=== PATIENT | male | born 1945 | race Caucasian/White ===

== ENCOUNTER → 2020-11-01 14:24 | Outpatient (BNVA) | payer OTHER, MEDICARE, SELFPAY | PROVIDERS: Family Provider Emergency Medicine Emergency Medical Services; PCP Emergency Medicine Emergency Medical Services; Visit Provider Internal Medicine Cardiovascular Disease | DX: E78.2 Mixed hyperlipidemia (principal) | CPT/HCPCS: 80061; 80076 ==

== ENCOUNTER → 2021-05-06 12:05 | Outpatient (BNVA) | payer OTHER, MEDICARE, SELFPAY | PROVIDERS: Family Provider Emergency Medicine Emergency Medical Services; PCP Emergency Medicine Emergency Medical Services; Visit Provider Internal Medicine Cardiovascular Disease | DX: E78.5 Hyperlipidemia, unspecified (principal); E78.2 Mixed hyperlipidemia | CPT/HCPCS: 80061 ==

== ENCOUNTER → 2022-04-17 11:30 | Outpatient (BNVA) | payer OTHER, SELFPAY | PROVIDERS: Family Provider Emergency Medicine Emergency Medical Services; PCP Emergency Medicine Emergency Medical Services; Visit Provider Internal Medicine Cardiovascular Disease | DX: I25.10 Atherosclerotic heart disease of native coronary artery without angina pectoris (principal); I10 Essential (primary) hypertension; E78.2 Mixed hyperlipidemia | CPT/HCPCS: 99214 ==

== ENCOUNTER → 2023-01-15 11:58 | Outpatient (BNVA) | payer OTHER, SELFPAY | PROVIDERS: Family Provider Emergency Medicine Emergency Medical Services; PCP Emergency Medicine Emergency Medical Services; Visit Provider Internal Medicine Cardiovascular Disease | DX: R06.02 Shortness of breath (principal); R25.2 Cramp and spasm; I25.10 Atherosclerotic heart disease of native coronary artery without angina pectoris; E78.2 Mixed hyperlipidemia; I10 Essential (primary) hypertension | CPT/HCPCS: 36415; 80048; 83735; 99214 ==

== ENCOUNTER → 2023-07-30 11:29 | Outpatient (BNVA) | payer OTHER, SELFPAY | PROVIDERS: Family Provider Emergency Medicine Emergency Medical Services; PCP Emergency Medicine Emergency Medical Services; Visit Provider Internal Medicine Cardiovascular Disease | DX: I25.10 Atherosclerotic heart disease of native coronary artery without angina pectoris (principal); E78.2 Mixed hyperlipidemia; I10 Essential (primary) hypertension; R25.2 Cramp and spasm | CPT/HCPCS: 99214 ==

== ENCOUNTER → 2024-02-16 10:58 | Outpatient (BNVA) | payer OTHER, SELFPAY | PROVIDERS: Family Provider Emergency Medicine Emergency Medical Services; PCP Emergency Medicine Emergency Medical Services; Visit Provider Internal Medicine Cardiovascular Disease | DX: R07.9 Chest pain, unspecified (principal); I25.10 Atherosclerotic heart disease of native coronary artery without angina pectoris; I10 Essential (primary) hypertension; E78.2 Mixed hyperlipidemia; M16.0 Bilateral primary osteoarthritis of hip; I44.0 Atrioventricular block, first degree | CPT/HCPCS: 93005; 99214 ==

== ENCOUNTER → 2024-08-18 10:00 | Outpatient (BNVA) | payer OTHER, SELFPAY | PROVIDERS: Family Provider Emergency Medicine Emergency Medical Services; PCP Emergency Medicine Emergency Medical Services; Visit Provider Nurse Practitioner Family | DX: I25.10 Atherosclerotic heart disease of native coronary artery without angina pectoris (principal); I10 Essential (primary) hypertension | CPT/HCPCS: 99214 ==

== ENCOUNTER → 2024-09-12 09:28 | Outpatient (BNVA) | payer OTHER, SELFPAY | PROVIDERS: Family Provider Emergency Medicine Emergency Medical Services; PCP Emergency Medicine Emergency Medical Services; Visit Provider Nurse Practitioner Family | DX: L57.0 Actinic keratosis (principal); L57.8 Other skin changes due to chronic exposure to nonionizing radiation; L82.1 Other seborrheic keratosis; D23.21 Other benign neoplasm of skin of right ear and external auricular canal; B35.1 Tinea unguium; L81.4 Other melanin hyperpigmentation | CPT/HCPCS: 17000; 99203 ==

== ENCOUNTER → 2025-03-02 11:22 | Outpatient (BNVA) | payer OTHER, SELFPAY | PROVIDERS: Family Provider Emergency Medicine Emergency Medical Services; PCP Emergency Medicine Emergency Medical Services; Visit Provider Internal Medicine Cardiovascular Disease | DX: I25.10 Atherosclerotic heart disease of native coronary artery without angina pectoris (principal); I10 Essential (primary) hypertension; E78.2 Mixed hyperlipidemia; M16.0 Bilateral primary osteoarthritis of hip | CPT/HCPCS: 99214 ==

== ENCOUNTER → 2025-03-13 09:50 | Outpatient (BNVA) | payer OTHER, SELFPAY | PROVIDERS: Family Provider Emergency Medicine Emergency Medical Services; PCP Emergency Medicine Emergency Medical Services; Visit Provider Nurse Practitioner Family | DX: L81.4 Other melanin hyperpigmentation (principal); L57.8 Other skin changes due to chronic exposure to nonionizing radiation; X32.XXXA Exposure to sunlight, initial encounter; L82.1 Other seborrheic keratosis; L57.0 Actinic keratosis | CPT/HCPCS: 17000; 99213 ==

== ENCOUNTER 2025-06-14 09:55 | Observation (INO) | payer OTHER, MEDICARE, SELFPAY ==
--- OUTSIDE RECORDS SUMMARY | 2024-07-21 05:00 | XMS_ITS | Encounter Summary ---
Author Name [facility] [place] [facility] [place] [facility] [facility] [place] Address [address] [place] [address] Care Team Providers Care Crm Technical Lead Name Role Phone ZEINAB ROBERTSON Primary Care Provider Unavail able Insurance Providers: All historical and current Section Date Range: From patient's date of to the date document was created. This section includes the names of all active insurance providers for the patient. Insurance Provider Type of Coverage Plan Name Start of Policy Coverage End of Policy Coverage Group Number Member ID Insurance Provider's Telephone Number Policy Mccrary's Name Patient's Relationship to Policy Mccrary [place] PREFERRED PROVIDER ORGANIZAT ION (PPO) UAW RETIR EE MEDIC AL Nov 16, 2009 [id number] [phone] HAMIDAREX LINDABOBBY PATIENT [place] [facility] (WNR) MEDICARE ADVANTAGE MCR (WNR) Nov 16, 2018 [id number] [phone] HAMIDAREX LEBOBBY PATIENT [place]THE[place] [facility] (WNR) MEDICARE ADVANTAGE MCR (WNR) Nov 16, 2018 [id number] [phone] HAMIDAREX LEBOBBY PATIENT [place] [facility] (WNR) MEDICARE ADVANTAGE MCR (WNR) Nov 16, 2013 [id number] [phone] HAMIDAREX LEBOBBY PATIENT [employer] ([employer]) PRESCRIPT ION UAW RETIR EE(WN R) Nov 16, 2009 [id number] [phone] BOBBY LORD PATIENT MEDICARE (WNR) MEDICARE (M) PART A Nov 16, 2013 PART A [id number] BOBBY LORD PATIENT MEDICARE (WNR) MEDICARE (M) PART A Nov 16, 2013 PART A [id number] BOBBY LORD PATIENT MEDICARE (WNR) MEDICARE (M) PART B Nov 16, 2013 PART B [id number] BOBBY LORD PATIENT MEDICARE (WNR) MEDICARE (M) PART B Nov 16, 2013 PART B [id number] BOBBY LORD PATIENT Selected Encounter This section includes the information on record at [place] for the Encounter. Date/Time Encounter Type Encounter Description Reason Provider Source Jul 21, 2024 10:00 AM IMMUNIZATION ADMIN PRIMARY CARE/MEDICINE ICD-10-CM Z00.00 Encntr for general adult medical exam w/o abnormal findings JANINE ROBERTSON Yulia Encounter Template Text not used by [facility] Assessments - Encounter Diagnoses This section includes the primary and secondary diagnoses documented for the Encounter. Date/Time Primary/Secondary Diagnosis Diagnosis Name Provider Source Jul 21, 2024 10:59 AM PRIMARY Encntr for general adult medical exam w/o abnormal findings JANINE ROBERTSON [facility] Jul 21, 2024 10:59 AM SECONDARY Athscl heart disease of [place] cor art w unsp ang pctrs JANINE ROBERTSON [facility] Jul 21, 2024 10:59 AM SECONDARY Encounter for immunization MARC KRAUS [facility] Jul 21, 2024 10:59 AM SECONDARY Essential (primary) hypertension JANINE ROBERTSON [facility] Jul 21, 2024 10:59 AM SECONDARY Hyperlipidemia, unspecified JANINE ROBERTSON [facility] Jul 21, 2024 10:59 AM SECONDARY Low back pain, unspecified JANINE ROBERTSON [facility] Jul 21, 2024 10:59 AM SECONDARY Unspecified osteoarthritis, unspecified site JANINE ROBERTSON [facility] Plan of Treatment: Future Appointments (+ 6 months) and Future Tests (+/- 45 days) The Plan of Treatment section includes future care activities for the patient from all [place] [facility]. This section includes future appointments and future orders which are active, pending or scheduled. Future Appointments This section includes appointments that were scheduled to occur 6 months from the date of the Encounter, up to a maximum of 20 appointments. The data comes from all [place] treatment facilities. Appointment Date/Time Appointment Type Appointme nt Facility Name Aug 18, 2024 10:00 AM AMBULATORY - MEDICINE [facility] Sep 12, 2024 08:00 AM AMBULATORY - MEDICINE [facility] Lab Results: +/- 30 days of the encounter This section includes the Chemistry and Hematology Lab Results on record with [place] for the patient. Radiology Reports and Pathology Reports are provided separately, in subsequent sections. Lab Results This section contains the Chemistry/Hematology Results that were resulted 30 days before or 30 daysafter the date of the Encounter. Date/Time Source Result Type Result - Unit Interpretation Reference Range Specimen Type Comment Jul 21, 2024 10:40 AM [facility] URINALYSIS (STL-PB) URINE Specimen Type: URINE No comment entered. Ordering Provider: JANINA ROBERTSON Report Released Date/Time: Jul 21, 2024 08:13 AM Reporting Lab: [facility] [address] [facility] [facility] [address] Performing Lab: [facility] [address] [facility] [facility] [address] URINE COLOR Colorless Yellow U.BILIRUBIN NEGATIVE mg/dL Negative U.PH 7.5 5.0-8.0 APPEARANCE CLEAR Clear U.NITRITE NEGATIVE mg/dL Negative URN.GLUCOSE NORMAL mg/dL Negative URN.PROTEIN NEGATIVE mg/dL Negative-20 URN.UROBILINOGEN NORMAL mg/dL Normal URN.BLOOD NEGATIVE mg/dL Negative-Trace URN.KETONES NEGATIVE mg/dL Negative-Trac e URN.LEUK.EST. NEGATIVE Negative-Trace URN.SPECIFIC GRAVITY 1.008 1.005-1.029 Jul 21, 2024 10:40 AM [facility] COMPREHENSIVE METABOLIC PANEL PLASMA Specimen Type: PLASMA No comment entered. Ordering Provider: ZEINAB ROBERTSON Report Released Date/Time: Jul 21, 2024 08:13 AM Reporting Lab: [place] [facility] [address] [place] [address] Performing Lab: [place] [facility] [address] [place] [address] CREATININE 0.98 mg/dL 0.7-1.3 UREA NITROGEN 10 mg/dL 9-25 GLUCOSE 102 mg/dL H 72-99 SODIUM 139 meq/L 136-145 POTASSIUM 4.2 meq/L 3.5-5 CHLORIDE 105 meq/L 98-107 CARBON DIOXIDE 24 meq/L 22-31 CALCIUM 9.3 mg/dL 8.4-10.4 PROTEIN 6.7 g/dL 6-8.6 ALBUMIN 4.0 g/dL 3.4-5 TOTAL BILIRUBIN 1.2 mg/dL 0.2-1.2 ALKALINE PHOSPHATASE 78 U/L 40-150 AST/SGOT 31 U/L 5-34 ALT/SGPT 32 U/L 8-40 EGFR (CKD-EPI 2020) 79 Jul 21, 2024 10:40 AM [facility] CHOLESTEROL PANEL (PB) PLASMA Specimen Type: P LASMA No comment entered. Ordering Provider: ZEINAB ROBERTSON Report Released Date/Time: Jul 21, 2024 08:13 AM Reporting Lab: [place] [facility] [address] [place] [address] Performing Lab: [place] [facility] [address] [place] [address] CHOLESTEROL 105 mg/dL 0-200 TRIGLYCERIDE 56 mg/dL 0-150 CALCULATED LDL 58.8 mg/dL HDL(New) 35.0 mg/dL L >40 HDL % OF TOTAL CHOLESTEROL (PB) 33.3 >25 Jul 21, 2024 10:40 AM [facility] CBC BLOOD Specimen Type: BLOOD No comment entered. Ordering Provider: ZEINAB ROBERTSON Report Released Date/Time: Jul 21, 2024 08:13 AM Reporting Lab: [place] [facility] [address] [place] [address] Performing Lab: [place] [facility] [address] [place] [address] WBC 7.8 10*3/uL 3.6-11.2 RBC 5.34 10*6/uL 4.10-5.70 HGB 16.7 g/dL 13.1-16.8 HCT 48.2 38.2-48.4 MCV 90.3 fL 80.0-100.0 MCH 31.3 pg 27.0-34.0 MCHC 34.6 g/dL 33.0-36.0 PLT 211 10*3/uL 150-400 MPV 10.6 fL 7.5-11.2 RDW 12.9 11.8-15.1 LYMPHOCYTES, AUTO % 24.1 MONOCYTES, AUTO % 6.6 NEUTROPHILS, AUTO % 67.0 EOSINOPHILS, AUTO % 1.9 BASOPHILS, AUTO % 0.3 LYMPHOCYTES, ABSOLUTE 1.87 10*3/uL 0.77- 4.50 MONOCYTES, ABSOLUTE 0.51 10*3/uL 0.19-0. 8 NEUTROPHILS, ABSOLUTE 5.21 10*3/uL 2.10- 8.00 EOSINOPHILS, ABSOLUTE 0.15 10*3/uL 0.00- 0.60 BASOPHILS, ABSOLUTE 0.02 10*3/uL 0.00-0. 20 IMMATURE GRANS, AUTO % 0.1 IMMATURE GRANS, AUTO ABS 0.01 10*3/uL 0. 00-0.05 Jul 21, 2024 10:40 AM [facility] TSH (MA-PB) SERUM Specimen Typ e: SERUM No comment entered. Ordering Provider: ZEINAB ROBERTSON Report Released Date/Time: Jul 21, 2024 08:13 AM Reporting Lab: [place] [facility] [address] [place] [address] Performing Lab: [place] [facility] [address] [place] [address] TSH 1.864 u[IU]/mL 0.47-5 Jul 21, 2024 10:40 AM [facility] HGA1C BLOOD Specimen Type: BLOOD No comment entered. Ordering Provider: ZEINAB ROBERTSON Report Released Date/Time: Jul 21, 2024 08:13 AM Reporting Lab: [place] [facility] [address] [place] [facility] Performing Lab: [place] [facility] [address] [place] [address] HGA1C 5.6 4.0-6.0 Jul 21, 2024 10:40 AM [facility] VITAMIN D, 25-HYDROXY SERUM Specimen Type: SE RUM No comment entered. Ordering Provider: ZEINAB ROBERTSON Report Released Date/Time: Jul 21, 2024 08:13 AM Reporting Lab: [place] [facility] [address] [place] [address] Performing Lab: [place] [facility] [address] [place] [address] VITAMIN D, 25-HYDROXY 48.3 ng/mL 30-96 Vital Signs: All taken on the encounter date This section contains inpatient and outpatient Vital Signs collected on the date of the Encounter. Date/Time Temperature Pulse Blood Pressure Respiratory Rate SP02 Pain Height Weight Body Mass Index Source Jul 21, 2024 10:22 AM 97.9 61 139/80 18 97 0 75.0 216.0 27 [facility] Immunizations: All administered on the encounter date This section contains immunizations associated to the Encounter. Immunization Series Date Issued Administered By Site Reaction Lot Number CVX Code Drug Barrel Loader And Cleaner Comment(s) Source INFLUENZA, HIGH-DOSE, TRIVALENT, PF Jul 21, 2024 KYA KRAUSNAH Eliane LEFT DELTO ID [id number] A 135 [facility] AT [facility] Social History: Smoking Status (Most current) and Tobacco Use (All prior to encounter date) This section includes the most current, and the historical, smoking and tobacco- related health factors from the [place] facility where the Encounter took place. Current Smoking Status This section includes the most current smoking, or tobacco-related health factor, from the [place] facility where the Encounter took place. Date/Time Current Smoking Status Comment Kenia mckeon Jul 21, 2024 10:00 AM VA-TOBACCO NEVER USED [facility] Tobacco Use History This section includes a history of the smoking, or tobacco-related health factors, that were collected on or before the date of the Encounter. The data comes from the [place] facility where the Encounter took place. Date/Time Smoking Status/Tobacco Use Comment Mitzy maxwell Jul 16, 2023 01:30 PM VA-TOBACCO NEVER USED [facility] May 09, 2022 10:00 AM VA-TOBACCO NEVER USED [facility] May 09, 2021 11:30 AM VA-TOBACCO NEVER USED [facility] Oct 25, 2018 01:00 PM VA-TOBACCO NEVER USED [facility] Nov 19, 2009 11:24 AM LIFETIME NON-USER OF TOBACCO [facility] Radiology Reports: +/- 30 days of the encounter Radiology Reports For cases when an order for radiology services may have been completed prior to the date of the Encounter, the report list includes the Radiology Reports that were completed up to 30 days before dateof the Encounter. For cases when an order for radiology services may have been completed after the date of the Encounter, the report list also includes the Radiology Reports that were completed up to30 days after date of the Encounter. The data comes from all [place] treatment facilities. Date/Time Radiology Report Provider Source Jul 21, 2024 10:40 AM CHEST X-RAY, 2 VIE WS: BOBBY FROST [id number] M Exm Date: JUL 21, 2024@10:40 Req Phys: ZEINAB ROBERTSON Loc: PB-EUSEBIO PACT FOXTROT RN ASSESSMENT WH (Req Img Loc: PB-XRAY RINDGE Service: [place] [address] (Case [id number] COMPLETE) CHEST X-RAY, 2 VIEWS (RAD Detailed) CPT:12278 Reason for Study: screening Clinical History: Report Status: Verified Date Reported: JUL 21, 2024 Date Verified: JUL 21, 2024 Vamp Marker E-Sig: Report: PA and lateral views of the chest reveal moderate degenerative skeletal change with no acute osseous abnormality. There is no infiltrate or effusion. Heart size is normal. Impression: No acute process Primary Interpreting Staff: HEVER DUNN RADIOLOGIST (Vamp Marker, no e-sig) /HEVER Bustos [facility] Encounter Notes: All associated encounter notes This section contains the clinical notes associated to the Encounter. Date/Time Encounter Note(s) Provider Source Jul 21, 2024 10:44 AM PRIMARY CARE PROGR ESS NOTE: LOCAL TITLE: PRIMARY CARE CLINIC PROGRESS NOTE PB STANDARD TITLE: PRIMARY CARE PROGRESS NOTE DATE OF NOTE: JUL 21, 2024@10:44 ENTRY DATE: JUL 21, 2024@10:44:39 AUTHOR: ZEINAB ROBERTSON EXP COSIGNER: URGENCY: STATUS: COMPLETED PROVIDER ASSESSMENT DATE & TIME:Jul@10:44 CHIEF COMPLAINT: Annual physical and labs. HISTORY OF PRESENT ILLNESS: Betty is being seen for his annual physical and labs. Betty is almost out of his statin and is breaking it in half. He needs his medications refilled. Betty had a fall and landed on his left hip. He states it is not broken but is sore. He states he exercises every day and other than an ear infection causing some vertigo he does not have health concerns. Betty is referred to [facility] regarding his hypertension and the PACT Act. Betty does not use alcohol or tobacco products. Active problems/med list dross puller: 1) Coronary artery disease (SNOMED CT 20497160) 2) Essential hypertension (SNOMED CT 20799780) 3) Hyperlipidemia (SNOMED CT 67217131) 4) Exposure to potentially hazardous chemical 5) Exposure to potentially hazardous substance 6) Low back pain 7) Peripheral vascular disease Active Outpatient Medications (including Supplies): Pending Outpatient Medications Status 1) ATORVASTATIN CALCIUM 80MG TAB TAKE ONE TABLET BY PENDING MOUTH EVERY EVENING TO LOWER CHOLESTEROL (REPORT ANY MUSCLE PAIN OR WEAKNESS) 2) LISINOPRIL 10MG TAB TAKE ONE-HALF TABLET BY MOUTH PENDING ONCE A DAY FOR HEART OR BLOOD PRESSURE Active Non-VA Medications Status 1) Non-VA ASPIRIN 81MG EC TAB 81MG BY MOUTH ONCE A DAY ACTIVE 3 Total Medications REVIEW OF SYSTEMS: HEENT: No Headache. No blurry vision, vision loss, eye pain, red eyes, or foreign body. No runnynose, congestion, or nose bleed. No ringing in the ears, or vertigo. No sore throat or dental pain. positive hearing loss. RESPIRATORY: No cough, SOA, wheezing, or sputum production. CARDIOVASCULAR: No chest pain, palpitations, tachycardia, PND, or orthopnea. GI: No abdominal pain, nausea, vomiting, diarrhea, constipation, melena, or hematochezia. : No dysuria, hematuria, urinary frequency, weak stream, or post-void dribbling. MUSCULOSKELETAL:chronic joint pain. SKIN: No rash, lesions, or infection PSYCH: No Depression or Anxiety. Not suicidal. PHYSICAL ASSESSMENT: VITAL SIGNS Pulse: 61 (07/21/2024 10:22) Blood Pressure: 139/80 (07/21/2024 10:22) Respiratory Rate: 18 (07/21/2024 10:22) Temperature: 97.9 F [36.6 C] (07/21/2024 10:22) Weight: 216.0 lb [97.98 kg] (07/21/2024 10:22) Height: 75.0 in [190.5 cm] (07/21/2024 10:22) Pain: 0 (07/21/2024 10:22) HEENT:PERRL, EOMI, Fundi benign, Right TM erythremic and bulging, left TM dull, Pharynx not red and without exudate, tonsils normal size. NECK: Supple, no lymhadenopathy, thyroid normal. CARDIAC: Regular rate and rhythm without murmur. No edema. RESPIRATORY: CTA, BEBS GI: Abdomen soft,with ABS, no HSM, no guarding or rebound. MUSCULOSKELETAL:Chronic joint pain with no acute change. SKIN: [place] without rash or lesions. NEUROLOGICAL: The [place] is alert and oriented without distress. Affect appropriate. IMPRESSION: Encounter for General Adult Medical Exam Hypertension-stable Hyperlipidemia-stable Osteoarthritis-chronic Right AOM-current PLAN: Increase water intake. Doxycycline 100mg one po bid for 7 days #14 0 refills. Prescription for 7 atorvastatin #14 0 refills. Fall precautions. Labs today. Chest xray today. Referral to VSO officer regarding hypertension and agent orange. Continue current medications. RTC in one year or sooner if needed. Patient is advised this primary care clinic has open access and he can make a same day appointment anytime a problem/concern arises. Patient further advised he can be seen on a walk-in basis as needed. Patient is provided clinic contact information. Medications reviewed and reconciled. Discussed diet and exercise as relevant to patient conditions. Treatment plan as noted above and the After Visit Summary was reviewed with ; opportunity provided to report concerns and ask question regarding aspects of care or treatment or services; concurrence reached and verbalized understanding. Please refer to addendum or follow up lab letter for plan of care/changes related to lab/test results not available at conclusion of appointment, if any. Discussed with patient that in the event of community imaging / testing being ordered in the future, once the imaging / testing has been completed, please notify PACT of within 1 week by a VA PACT member; this is due to intermittent lapses in notification of imaging completion within CPRS. All questions answered; agrees to plan of care. Follow up as listed above, annually, and as needed. Keep all completion at outside facility if not called with results appointments. Medications Reconciled. Time spent 30 minutes. /lamberto/ DWAYNE [facility], [facility] Signed: 07/21/2024 10:59 ZEINAB ROBERTSON [facility] Jul 21, 2024 10:08 AM PRIMARY CARE NURSI NG NOTE: LOCAL TITLE: PRIMARY CARE NURSING PROGRESS NOTE (TEXT) NURSING P STANDARD TITLE: PRIMARY CARE NURSING NOTE DATE OF NOTE: JUL 21, 2024@10:08 ENTRY DATE: JUL 21, 2024@10:08:55 AUTHOR: MARC KRAUS EXP COSIGNER: URGENCY: STATUS: COMPLETED PRIMARY CARE NURSING PROGRESS NOTE (TEXT) NURSING PB Has ADDENDA Established Patient BOBBY FROST IS A 79 YEAR OLD MALE BEING SEEN IN CLINIC JUL 21, 2024. == == REASON FOR VISIT: Here today for his annual App[facility] Reported Are you receiving care any where other than the [facility]? No HEALTH AND SURGICAL HISTORY: Does patient report using home oxygen? No CURRENT ACTIVE MEDICATIONS FOR REVIEW: Allergies/ADRs (Tool #5) FACILITY ALLERGY/ADR -------- No Remote Allergy/ADR Data available for this patient [facility] No Known Allergies Med. Reconciliation (Tool #1) INCLUDED IN THIS LIST: Alphabetical list of active outpatient prescriptions dispensed from this [place] (local) and dispensed from another [place] or DoD facility (remote) as well as inpatient orders (local pending and active), local clinic medications, locally documented non-VA medications, and local prescriptions that have or been discontinued in the past 90 days. Non-VA Meds Last Documented On: May 05, 2019 NOTE The display of VA prescriptions dispensed from another [place] or DoD facility (remote) is limited to active outpatient prescription entries matched to National Drug File at the originating site and may not include some items such as investigational drugs, compounds, etc. NOT INCLUDED IN THIS LIST: Medications self-entered by the patient into personal health records (i.e. [employer]) are NOT included in this list. Non-VA medications documented outside this [place], remote inpatient orders (regardless of status) and remote clinic medications are NOT included in this list. The patient and provider must always discuss medications the patient is taking, regardless of where the medication was dispensed or obtained. Non-VA ASPIRIN 81MG EC TAB TAKE ONE TABLET BY MOUTH ONCE A DAY Patient wants to buy from Non-VA pharmacy. OUTPT ATORVASTATIN CALCIUM 80MG TAB (Status = ) TAKE ONE TABLET BY MOUTH EVERY EVENING TO LOWER CHOLESTEROL (REPORT ANY MUSCLE PAIN OR WEAKNESS) Rx# [id number] Last Released: 04/14/24 Qty/Days Supply: Rx Expiration Date: 06/15/24 Refills Remainin OUTPT LISINOPRIL 10MG TAB (Status = ) TAKE ONE-HALF TABLET BY MOUTH ONCE A DAY FOR HEART OR BLOOD PRESSURE Rx# [id number] Last Released: 05/18/24 Qty/Days Supply: Rx Expiration Date: 06/15/24 Refills Remainin SUPPLIES PHARMACY TERMS AND POSSIBLE PATIENT ACTIONS INPT = [place] inpatient order IV = [place] intravenous medication OUTPT = [place] outpatient prescription PHARMACY POSSIBLE PATIENT TERMS EXPLANATION ACTIONS -------- ----- ACTIVE A prescription that can be If you have refills, filled at the local [place] pharmacy. you may request a refill of this prescription from your [place] pharmacy. CLINIC A medication you received during If you have questions a visit to a [place] clinic or about this medication emergency department. contact your [place] healthcare team. DISCONTINUED A prescription your provider has Contact your VA stopped. It is no longer healthcare team if you available to be sent to you or need more of this picked up at the [place] pharmacy medication. window. A prescription which is too old Contact your VA to fill. This does not refer to healthcare team if you the expiration date of the need more of this medication in the container. medication. NON-VA A medication that came from If this medication someplace other than a VA information is pharmacy. This may be a incorrect or out of prescription from either the VA date, please tell your or non VA providers that was VA healthcare team. filled outside the VA. Or, it may be an [id number]-fzh-slhqxnf (OTC), herbal, dietary supplements or sample medication. ON HOLD An active prescription that will Contact your VA not be filled until pharmacy pharmacy when you need resolves the issue. more of this medication. PARKED An active prescription that will Contact your VA not be filled until the patient pharmacy when you need requests it. this medication. PENDING This prescription order has been If you have been sent to the pharmacy for review instructed to start and is not ready yet. this medication now, contact your VA pharmacy. SUSPENDED An active prescription that is Contact your VA not scheduled to be filled yet. pharmacy if you need You should receive it before this medication now. you run out. Patient reports taking medications as ordered. IS PATIENT TAKING ANY OVER THE COUNTER MEDICATIONS, SUCH VITAMINS OR HERBAL SUPPLEMENTS, INCLUDING ANY MEDICATIONS PRESCRIBED BY ANOTHER PHYSICIAN? No ALLERGIES/ADVERSE REACTIONS: Patient has answered NKA Does patient have any new allergies to report since last visit? NO VITALS: TEMPERATURE: 97 F [36.1 C] (05/09/2022 10:01) BP: 122/74 (05/09/2022 10:01) RESP: 22 (05/09/2022 10:01) PULSE: 78 (05/09/2022 10:01) HT: 75 in [190.5 cm] (05/05/2018 11:21) WT: 219.4 lb [99.52 kg] (05/09/2022 10:01) BMI: 27.5 PAIN ASSESSMENT: (Most Recent Pain Score in Vitals Package: 0 (05/09/2022 10:01) ) The patient indicated that they and their close contacts have not traveled outside of the [place] in the past 21 days. The patient reports the following symptoms: No symptoms present The patient is not immunocompromised. The patient does not report having a history of Multi Drug Resistant Organism (MDRO) within the last five years. The patient does not report having been exposed to measles, chickenpox, or zoster in last 30 days. Patient reports no pain at this visit. Pain Score = 0. STRESS: Thank you for your service. Now let us serve you. At the [facility], we strive to provide you with exceptional health care that improves your health and well-being. Are you feeling sad, empty, or depressed? No Do you need to talk about things in your life that worry you or cause you stress? No Do you need to talk about personal problems, family problems, alcohol use, drug use, or mental or emotional illness? No SUICIDE SCREENING: The patient was asked, Over the past two weeks, how often have you been bothered by thoughts that you would be better off or of hurting yourself in some way? Not At All SPIRITUAL ASSESSMENT: Are there mandaeism practices or spiritual concerns you want the literacy consultant, your physician, and other health care team members to immediately know about? No Patient advised to call the clinic for any concerns, questions, or symptoms. Patient and/or caregiver verbalized understanding of plan of care. Frail/Elderly Screen: ADL Screen - Fisher Index of [place] in Activities of Daily Living Bathing: (3 Points) Receives no assistance (gets in and out of tub by self, if tub is usual means of bathing) Dressing: (3 Points) Gets clothes and gets completely dressed without assistance. Toileting: (3 Points) Goes to toilet room , cleans self, and arranges clothes without assistance (may use object for support such as cane, walker, or wheelchair, and may manage own night bedpan or commode, emptying same next morning) Transferring: (3 Points) Moves in and out of bed and in and out of chair without assistance (may be using object for support, such as cane or walker) Continence: (3 Points) Controls urination and bowel movement completely by self Feeding: (3 Points) Feeds self without assistance Total Score: 18 Points 18 = High (patient independent) 6 = Low (patient very dependent) IADL Screen - [place] Instrumental Activities of Daily Living Scale Ability to use telephone: (1 point) Operates Telephone on own initiative; looks up and dials numbers. Shopping: (1 point) Takes care of all shopping needs independently. Food preparation: (1 point) Plans, prepares, and serves adequate meals independently. Housekeeping: (1 point) Maintains house alone with occasional assistance (heavy work). Laundry: (1 point) Does personal laundry completely. Mode of transportation: (1 point) Travels independently on public transportation or drives own car. Responsibility for own medications: (1 point) Is responsible for taking medications in correct dosages at correct times. Ability to handle finances: (1 point) Manages financial matters independently (budgets, writes checks, pays rent and bills, goes to bank); collects and keeps track of income. Total score: 8 points 8 = High function, independent 0 = Low function, dependent Falls Screen: One fall with no injury within the last 12 months. Incontinence Screen: No incontinence. Suicide Screen: C-SSRS Screening Manning-Suicide Severity Rating Scale (C-SSRS Screener) 1. Over the past month, have you wished you were or wished you could go to sleep and not wake up? No 2. Over the past month, have you had any actual thoughts of killing yourself? No 3. Over the past month, have you been thinking about how you might do this? Response not required due to responses to other questions. 4. Over the past month, have you had these thoughts and had some intention of acting on them? Response not required due to responses to other questions. 5. Over the past month, have you started to work out or worked out the details of how to kill yourself? Response not required due to responses to other questions. 6. If yes, at any time in the past month did you intend to carry out this plan? Response not required due to responses to other questions. 7. In your lifetime, have you ever done anything, started to do anything, or prepared to do anything to end your life (for example, collected pills, obtained a gun, gave away valuables, went to the roof but didn't jump)? No 8. If YES, was this within the past 3 months? Response not required due to responses to other questions. Sexual Orientation: The patient thinks of their sexual orientation as: Straight or Heterosexual FALL RISK OP PB: NERI FALL RISK ASSESSMENT Have you experienced any falls within the last 12 months: 10 = Yes Secondary Dx: 5 = Yes Secondary Dx Ambulatory Aid: 0 = No Gait/Transferrin = Normal/Bedrest/Immobile Mental status: 0 = Oriented to own ability Medications: 5 = High risk meds TOTAL SCORE: 20 Score <30 - patient IS NOT at risk for falls. No action at this time. Reassess annually or if needed. Fall Documentation No - Patient did not experience a fall within the last year RHS Screen: RHS Screen Session Format: Face to Face Environmental Check Upon inquiry, the individual reports that the environment is safe to proceed. Informed Consent to Screen and Document The individual consents to proceed with screening. The individual consents to documentation of responses. PRIMARY SCREEN: In the past 12 months, how often did a current or former intimate partner (e.g., boyfriend, girlfriend, , , sexual partner): 1. Scream or curse at you Never 2. Insult or talk down to you Never 3. Threaten you with harm Never 4. Physically hurt you Never 5. Force or pressure you to have sexual contact against your will, or when you were unable to say no Never The HITS tool (items 1-4 above) is [place] copyright protected by Jeff Gil MD, and the user has full rights to use it throughout the [place] system. PRIMARY SCREEN RESULT: The Primary Screen is NEGATIVE. The individual answered never to all forms of IPV above (i.e., answered never to all 5 items) The individual accepts education and/or resources: No EDUCATION: Other: na Comments: na COVID-19 Immunization: Refused Moderna Monovalent COVID-19 vaccine Immunization: COVID-19 (MODERNA), MRNA, LNP-S, PF, 50 MCG/0.5 ML (AGES 12+ YEARS) Refusal Reason: PATIENT DECISION Patient refuses all immunization(s) in the COVID-19 group Date Documented: 07/21/24 10:28 Alcohol Use Screen (AUDIT-C): Alcohol Screen: SCREEN FOR ALCOHOL (AUDIT-C) An alcohol screening test (AUDIT-C) was negative (score=0). 1. How often did you have a drink containing alcohol in the past year? Consider a drink to be a 12 ounce can or bottle of regular beer, 8 ounces of malt liquor, a 5 ounce glass of table wine, or a 1.5 ounce shot of liquor (like scotch, gin, or vodka). Never 2. How many drinks containing alcohol did you have on a typical day when you were drinking in the past year? Response not required due to responses to other questions. 3. How often did you have six or more drinks on one occasion in the past year? Response not required due to responses to other questions. Depression Screening: Perform PHQ-2 A PHQ-2 screen was performed. The score was 0 which is a negative screen for depression. Over the past two weeks, how often have you been bothered by the following problems? 1. Little interest or pleasure in doing things Not at all 2. Feeling down, depressed, or hopeless Not at all Tobacco Use Screening: The patient has never used tobacco. Homelessness/Food Insecurity Screen: In the past 2 months, have you been living in stable housing that you own, rent, or stay in as part of a household? Yes - Living in stable housing. Are you worried or concerned that in the next 2 months you may NOT have stable housing that you own, rent, or stay in as part of a household? No - Not worried about housing near future The [place] reports the following: Within the past 12 months, you worried whether your food would run out before you got money to buy more. Never true Within the past 12 months, the food you bought just didn't last and you didn't have money to get more. Never true Influenza Immunization: Deferral / Refusal The patient declines to receive the recommended dose of seasonal influenza vaccine. Immunization: INFLUENZA, UNSPECIFIED FORMULATION Refusal Reason: PATIENT DECISION Patient refuses all immunization(s) in the FLU group Date Documented: 07/21/24 10:29 Advanced Directive Screen/Licensed Real Estate Broker: ADVANCE DIRECTIVE SCREENING: I asked if the patient has an advance directive, and determined that: Patient has an Advance Directive. Patient does not wish to make any changes to the Advance Directive at this time. ADVANCE DIRECTIVE NOTIFICATION I provided the patient with written notification about advance directives. Level of understanding: Pain Assessment: - PAIN ASSESSMENT: .. Patient reports no pain at this visit. Pain Score = 0. Patient's self identified pain goal: 0 VVC DIGITAL DIVIDE CAPABILITY REMINDER: Patient is not interested in VVC at this time. 'S RIGHT TO DECLINE STATEMENT [place] understands they have the right to decline the use of Telehealth Technology at any time without adverse affects on their continued access to healthcare. [facility] - PHP MAP: PERSONAL HEALTH PLAN INVENTORY & MAP 's Response: Family /lamberto/ MARC KRAUS LPN Signed: 07/21/2024 10:30 07/21/2024 ADDENDUM STATUS: COMPLETED Influenza Immunization: Influenza, High-Dose, Trivalent, Preservative Free (Fluzone-Syringe) Administered: INFLUENZA, HIGH-DOSE, TRIVALENT, PF Date Administered: Jul 21, 2024 10:00 Barrel Loader And Cleaner: SANOFI PASTEUR Lot: [id number] Exp Date: May 15, 2025 NDC: [id number] Admin Route/Site: INTRAMUSCULAR/LEFT DELTOID Dosage: 0.5mL Vaccine Information Statement(s): INFLUENZA(FLU) VACC(INACTIVATED OR RECOMBINANT)VIS Jun 21, 2021 (VINCENTIAN) Order By: Policy Administered By: Marc Kraus Override Reason: [place] requested Vaccine today after seeing provider. The Influenza Vaccine Information Statement (VIS) was reviewed with the patient/caregiver which lists the benefits and risks of the vaccine and the risks of not receiving the Influenza vaccine. The patient/caregiver denied any prior severe reaction to this vaccine or its components or a severe allergic reaction, such as anaphylaxis, to any vaccine or any injectable therapy. The patient/caregiver gave verbal consent to receive the vaccine. /lamberto/ MARC KRAUS LPN Signed: 07/21/2024 11:14 MARC KRAUS [facility]
--- OUTSIDE RECORDS SUMMARY | 2024-07-21 10:53 | XMS_ITS | Encounter Summary ---
Author Name [facility] [place] [facility] [place] [facility] [facility] [place] Address [address] [place] [address] Care Team Providers Care Gospel Worker Name Role Phone ZEINAB ROBERTSON Primary Care [...] RETIR EE MEDIC AL Nov 16, 2009 [id number] [phone] HAMIDAREX LEFABIO PATIENT AN[place] [facility] (WNR) MEDICARE ADVANTAGE [facility] (WNR) Nov 16, 2018 [id number] [phone] LOUISE LEFABIO PATIENT [place] [facility] (WNR) MEDICARE ADVANTAGE M[facility] (WNR) Nov 16, 2018 [id number] [phone] LOUISE LEFABIO PATIENT [place] [facility] (WNR) MEDICARE ADVANTAGE MCR (WNR) Nov 16, 2013 [id number] [phone] FABIO LORD PATIENT [employer] ([employer]) PRESCRIPT ION UAW RETIR EE(WN R) Nov 16, 2009 [id number] [phone] FABIO LORD PATIENT MEDICARE (WNR) MEDICARE (M) PART A Nov 16, 2013 PART A [id number] FABIO LORD PATIENT MEDICARE (WNR) MEDICARE (M) PART B Nov 16, 2013 PART B [id number] FABIO LORD PATIENT MEDICARE (WNR) MEDICARE (M) PART B Nov 16, 2013 PART B [id number] FABIO LORD PATIENT MEDICARE (WNR) MEDICARE (M) PART A Nov 16, 2013 PART A [id number] FABIO LORD PATIENT Selected Encounter This section includes the information on record at [place] for the Encounter. Date/Time Encounter Type Encounter Description Reason Provider Source Jul 21, 2024 03:53 PM Outpatient Encounter ADMIN PAT ACTIVTIES (MASNONCT) AMINATA LYNCH Yulia Encounter Template Text not used by [place] Plan of Treatment: Future Appointments (+ 6 months) and Future Tests (+/- 45 days) The Plan of Treatment section includes future care activities for the patient from all [place] treatmentfacilities. This section includes future appointments and future orders which are active, pending or scheduled. Future Appointments This section includes appointments that were scheduled to occur 6 months from the date of the Encounter, up to a maximum of 20 appointments. The data comes from all [place] treatment facilities. Appointment Date/Time Appointment Type Appointme nt Facility Name Aug 18, 2024 10:00 AM [facility]UL[facility]ORY - MEDICINE [facility] Sep 12, 2024 08:00 AM [facility]BULATORY - MEDICINE [facility] Lab Results: +/- 30 days of the encounter This section includes the Chemistry and Hematology Lab Results on record with [place] for the patient. Radiology Reports and Pathology Reports are provided separately, in subsequent sections. Lab Results This section contains the Chemistry/Hematology Results that were resulted 30 days before or 30 daysafter the date of the Encounter. Date/Time Source Result Type Result - Unit Interpretation Reference Range Specimen Type Comment Jul 21, 2024 10:40 AM [facility] URINALYSIS (STL-PB) URINE Specimen Type: URINE No comment entered. Ordering Provider: JANINA ROBERTSON Report Released Date/Time: Jul 21, 2024 08:13 AM Reporting Lab: [facility] [address] [phone] Performing Lab: [facility] [address] [facility] [place] [id number] URINE COLOR Colorless Yellow U.BILIRUBIN NEGATIVE mg/dL Negative U.PH 7.5 5.0-8.0 APPEARANCE CLEAR Clear U.NITRITE NEGATIVE mg/dL Negative URN.GLUCOSE NORMAL mg/dL Negative URN.PROTEIN NEGATIVE mg/dL Negative-20 URN.UROBILINOGEN NORMAL mg/dL Normal URN.BLOOD NEGATIVE mg/dL Negative-Trace URN.KETONES NEGATIVE mg/dL Negative-Trac e URN.LEUK.EST. NEGATIVE Negative-Trace URN.SPECIFIC GRAVITY 1.008 1.005-1.029 Jul 21, 2024 10:40 AM [facility] COMPREHENSIVE METABOLIC PANEL PLASMA Specimen Type: PLASMA No comment entered. Ordering Provider: ZEINAB RBOERTSON Report Released Date/Time: Jul 21, 2024 08:13 AM Reporting Lab: [facility] [address] [facility] [place] [phone] Performing Lab: [facility] [address] [facility] [place] [id number] CREATININE 0.98 mg/dL 0.7-1.3 UREA NITROGEN 10 [...] 2020) 79 Jul 21, 2024 10:40 AM [facility] CHOLESTEROL PANEL (PB) PLASMA Specimen Type: P LASMA No comment entered. Ordering Provider: ZEINAB ROBERTSON Report Released Date/Time: Jul 21, 2024 08:13 AM Reporting Lab: [place] [facility] [address] [place] [id number] Performing Lab: [facility] [address] [place] [id number] CHOLESTEROL 105 mg/dL 0-200 TRIGLYCERIDE 56 mg/dL 0-150 CALCULATED LDL 58.8 mg/dL HDL(New) 35.0 mg/dL L >40 HDL % OF TOTAL CHOLESTEROL (PB) 33.3 >25 Jul 21, 2024 10:40 AM [facility] CBC BLOOD Specimen Type: BLOOD No comment entered. Ordering Provider: ZEINAB ROBERTSON Report Released Date/Time: Jul 21, 2024 08:13 AM Reporting Lab: [place] [facility] [address] [place] [id number] Performing Lab: [place] [facility] [address] [facility] [phone] WBC 7.8 10*3/uL 3.6-11.2 RBC 5.34 10*6/uL [...] 0. 00-0.05 Jul 21, 2024 10:40 AM [facility] TSH (MA-PB) SERUM Specimen Typ e: SERUM No comment entered. Ordering Provider: ZEINAB ROBERTSON Report Released Date/Time: Jul 21, 2024 08:13 AM Reporting Lab: [place] [facility] [address] [place] [phone] Performing Lab: [place] [facility] [address] [place] [id number] TSH 1.864 u[IU]/mL 0.47-5 Jul 21, 2024 10:40 AM [facility] HGA1C BLOOD Specimen Type: BLOOD No comment entered. Ordering Provider: ZEINAB ROBERTSON Report Released Date/Time: Jul 21, 2024 08:13 AM Reporting Lab: [place] [facility] [address] [place] [phone] Performing Lab: [place] [facility] [address] [place] [phone] HGA1C 5.6 4.0-6.0 Jul 21, 2024 10:40 AM [facility] VITAMIN D, 25-HYDROXY SERUM Specimen Type: SE RUM No comment entered. Ordering Provider: ZEINAB ROBERTSON Report Released Date/Time: Jul 21, 2024 08:13 AM Reporting Lab: [place] [facility] [address] [place] [phone] Performing Lab: [place] [facility] [address] [place] [phone] VITAMIN D, 25-HYDROXY 48.3 ng/mL 30-96 Vital Signs: All taken on the encounter date This section contains inpatient and outpatient Vital Signs collected on the date of the Encounter. Date/Time Temperature Pulse Blood Pressure Respiratory Rate SP02 Pain Height Weight Body Mass Index Source Jul 21, 2024 10:22 AM 97.9 61 139/80 18 97 0 75.0 216.0 27 [facility] Social History: Smoking Status (Most current) and Tobacco Use (All prior to encounter date) This section includes the most current, and the historical, smoking and tobacco- related health factors from the [place] facility where the Encounter took place. Current Smoking Status This section includes the most current smoking, or tobacco-related health factor, from the [place] facility where the Encounter took place. Date/Time Current Smoking Status Comment Kenia mckeon Jul 21, 2024 10:00 AM [facility] USED [facility] [place] [facility] Tobacco Use History This section includes a history of the smoking, or tobacco-related health factors, that were collected on or before the date of the Encounter. The data comes from the [place] facility where the Encounter took place. Date/Time Smoking Status/Tobacco Use Comment F acility Jul 16, 2023 01:30 PM [facility]BACCO [place] USED [facility] [place] [facility] May 09, 2022 10:00 AM [facility] [facility] [place] [facility] May 09, 2021 11:30 AM [facility]-[place] USED [facility] [place] [facility] Oct 25, 2018 01:00 PM VA-[place]BACCO [place] USED [facility] [place] [facility] Nov 19, 2009 11:24 AM LIFETIME NON-USER OF TOBACCO [facility] Radiology Reports: +/- 30 days of the [...] the Encounter. The data comes from all [place] treatment facilities. 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 There is no infiltrate or effusion. Heart size is normal. Impression: No acute process Primary Interpreting Staff: HEVER DUNN, RADIOLOGIST (Dietitian Teaching, no e-sig) /HEVER Bustos [facility] Encounter Notes: All associated encounter notes This section contains the clinical notes associated to the Encounter. Date/Time Encounter Note(s) Provider Source Jul 21, 2024 03:53 PM LETTERS: LOCAL TITLE: TELE-EYE RESULTS LETTER STANDARD TITLE: LETTERS DATE OF NOTE: JUL 21, 2024@15:53 ENTRY DATE: JUL 21, 2024@15:53:14 AUTHOR: AMINATA LYNCH COSIGNER: URGENCY: STATUS: COMPLETED JUL 21, 2024 FABIO SOMERS [id number] [address] Dear Fabio Somers: You are receiving this letter in regard to your recent [facility] EYE SCREENING. The purpose of the screening is to detect specific vision-threatening conditions such as diabetic retinopathy (if you are diabetic), macular degeneration, and glaucoma. Early detection of eye disease can be important to reduce the risk of permanent vision loss. Your information and testing was reviewed by a licensed [facility] eye care provider. The date of review and findings are noted below: Screening Exam Findings 07/21/2024 No macular degeneration apparent No glaucoma apparent No other time-sensitive findings apparent Recommendations: 07/21/2024 A repeat eye screening in 2 YEARS has been recommended *Please note that incidental findings outside the primary focus of this screening may be noted within the detailed report of the visit. This report can be accessed online through youmag (www.[employer].gov) or requested through your [facility] Medical Records/Release of Information office. If you have been seen by a non-VA eye care provider, please bring your records to your next [facility] appointment to be scanned into your medical record. If you are a tobacco user, VA provides tobacco cessation services which can reduce the risk of eye disease as well as risks to your overall health. Please discuss with your [facility] Primary Care team for more information. Thank you for allowing us to serve you. [facility] Healthcare Team Digital retinal imaging has been shown to be an effective method of screening for specific eye conditions, but cannot substitute for a comprehensive eye exam. Comprehensive eye exams are recommended every 1-2 years, or more frequently as determined by the presence of risk factors, early signs or symptoms, or known history of eye disease. [facility]
--- OUTSIDE RECORDS SUMMARY | 2025-06-14 03:37 | XMS_ITS | Encounter Summary ---
Author Name [facility] [place] [facility] [place] Address [address] [place] [address] Care Team Providers Care Director Agency & Strategic Partnerships Name Role Phone ZEINAB ROBERTSON Primary Care [...] Mccrary's Name Patient's Relationship to Policy Mccrary [place] PREFERRED PROVIDER ORGANIZAT ION (PPO) [facility] RETIR EE MEDIC [place] Nov 16, 2009 [id number] [phone] LOUISE LINDABOBBY PATIENT [place] [facility] (WNR) MEDICARE ADVANTAGE [facility] (WNR) Nov 16, 2018 [id number] [phone] LOUISE LINDABOBBY PATIENT ANTHE[place] [facility] (WNR) MEDICARE ADVANTAGE [facility] (WNR) Nov 16, 2018 [id number] [phone] LOUISE LINDABOBBY PATIENT [place] [facility] ([place]NR) MEDICARE ADVANTAGE [facility] (WNR) Nov 16, 2013 [id number] [phone] BOBBY LORD PATIENT [employer] ([employer]) PRESCRIPT ION [employer]AW RETIR EE(WN R) Nov 16, 2009 [id number] [phone] BOBBY LORD PATIENT MEDICARE (WNR) MEDICARE (M) PART A Nov 16, 2013 PART A [id number] BOBBY LORD PATIENT MEDICARE (WNR) MEDICARE (M) PART A Nov 16, 2013 PART A [id number] BOBBY LORD PATIENT MEDICARE (WNR) MEDICARE (M) PART B Nov 16, 2013 PART B [id number] BOBBY LORD PATIENT MEDICARE (WNR) MEDICARE (M) PART B Nov 16, 2013 PART B [id number] BOBBY LORD PATIENT Selected Encounter This section includes the information on record at [place] for the Encounter. Date/Time Encounter Type Encounter Description Reason Provider Source Jun 14, 2025 08:37 AM Outpatient Encounter ADMIN PAT ACTIVTIES (MASNONCT) RAJAT PERDOMO Yulia Encounter Template Text not used by [place] Plan of Treatment: Future Appointments (+ 6 months) and Future Tests (+/- 45 days) The Plan of Treatment section includes future care activities for the patient from all [place] treatmentfacilities. This section includes future appointments and future orders which are active, pending or scheduled. Future Appointments This section includes appointments that were scheduled to occur 6 months from the date of the Encounter, up to a maximum of 20 appointments. The data comes from all [place] treatment facilities. Appointment Date/Time Appointment Type Appointme nt Facility Name Jul 21, 2025 10:00 AM AMBULATORY - MEDICINE [facility] Encounter Notes: All associated encounter notes This section contains the clinical notes associated to the Encounter. Date/Time Encounter Note(s) Provider Source Jun 14, 2025 08:37 AM TELEHEALTH NOTE: LOCAL TITLE: TELE EMERGENCY CARE [place] MAIL DRIVER NOTE STANDARD TITLE: TELEHEALTH NOTE DATE OF NOTE: JUN 14, 2025@08:37 ENTRY DATE: JUN 14, 2025@08:46:12 AUTHOR: RAJAT PERDOMO EXP COSIGNER: URGENCY: STATUS: COMPLETED [place] referred from: Candis Mark 's name, last 4, and were verified. Encounter/Visit Type: Telephone [place]'s Phone Number, Address, Email Address and Contact Information Patient Address: [facility] [address] [address] Patient Email - [email or web address] Emergency Contact: CON - Patient Contacts Patient Phone Numbers: Cell: No data available Home: Work: No data available Emergency Contact: Name: BROOKLYNN FROST Relationship: Secondary Emergency Contact: Name: No data available Relationship: No data available Phone: No data available Secondary Next of Kin Contact Name: No data available Relationship: No data available Phone: No data available - Age: 80 years old Gender: MALE Chief Complaint: dizzy [facility]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 Able to speak complete sentences with ease. Skin Assessment: Chief Complaint: 80yo woke today with dizziness, worse on moving body or just turning head. emesis x1. denies cp, sob, headache. states two days ago he had some left ear fullness or discomfort but none now. pt convinced this is middle ear infection as he has had one in past. refused ER. connected with Dr. Marroquin for further eval. Safety Assessment: Are you living in a safe environment? Yes Are you carrying any weapons or contraband? No Past Medical History/Active Problems: JULIA - Active Problems 9 Active Problems PROBLEM LAST MOD PROVIDER Coronary artery disease (SNOMED CT 70373727) 04/16/2016 LISA JOHNSON Essential hypertension (SNOMED CT 27525529) 04/16/2016 LSIA JOHNSON Hyperlipidemia (SNOMED CT 66327639) 04/16/2016 LISA JOHNSON Exposure to potentially hazardous chemical 07/16/2023 SHAUN LOMAX Exposure to potentially hazardous substance 01/21/2024 SHAUN LOMAX Low back pain 07/21/2024 RUBEN ROBERTSON Peripheral vascular disease 07/21/2024 RUBEN ROBERTSON OA - Osteoarthritis 07/21/2024 RUBEN ROBERTSON Allergic rhinitis 07/21/2024 RUBEN ROBERTSON Allergies/Adverse Reactions No allergy(ies) or New allergy(ies) reported by [place] at this time. Current Medications: Active Outpatient Medications (including Supplies): ATORVASTATIN CALCIUM 80MG TAB TAKE ONE TABLET BY MOUTH ACTIVE EVERY EVENING TO LOWER CHOLESTEROL (REPORT ANY MUSCLE PAIN OR WEAKNESS) CETIRIZINE HCL 10MG TAB TAKE ONE TABLET BY MOUTH ONCE A ACTIVE DAY Indication: FOR ALLERGY SYMPTOMS LISINOPRIL 10MG TAB TAKE ONE-HALF TABLET BY MOUTH ONCE A ACTIVE DAY FOR HEART OR BLOOD PRESSURE Non-VA ASPIRIN 81MG EC TAB 81MG BY MOUTH ONCE A DAY ACTIVE 4 Total Medications Vital Signs (Historical/Last 3): Measurement DT TEMP RESP PULSE BP POx F(C) (L/MIN)(%) 07/21/2024 10:22 97.9(36.6) 18 61 139/80 97 05/09/2022 10:01 97(36.1) 22 78 122/74 96 05/09/2021 11:05 96.1(35.6) 18 67 136/70 97 Measurement DT PAIN WEIGHT HEIGHT LB(KG)[BMI] IN(CM) 07/21/2024 10:22 0 216.0(97.98)[27] 75.0(190.50) 05/09/2022 10:01 0 219.4(99.52)[27] 05/09/2021 11:05 0 220.2(99.88)[28*] Emergency Severity Index (MIGUELITO) level: Level 3 Disposition: Transferred to Tele Emergency Care Provider Time Spent: 12minutes /lamberto/ RAJAT HERR RN REGISTERED NURSE Signed: 06/14/2025 09:07 RAJAT PERDOMO [facility]
--- OUTSIDE RECORDS SUMMARY | 2025-06-14 03:45 | XMS_ITS | Encounter Summary ---
Author Name [facility] [place] Address [address] [place] [address] Care Team Providers Care Circuit Court Clerk Name Role Phone ZEINAB ROBERTSON Primary Care [...] RETIR EE MEDIC AL Nov 16, 2009 [id number] [phone] LOUISE ALEXEIBOBBY PATIENT [place] [facility] (WNR) MEDICARE ADVANTAGE [facility] (WNR) Nov 16, 2018 [id number] [phone] HAMIDAREX LEBOBBY PATIENT [place]THE[place]BS [place] [facility] (WNR) MEDICARE ADVANTAGE [facility] (WNR) Nov 16, 2018 [id number] [phone] HAMIDAREX LEBOBBY PATIENT [place] [facility] (WNR) MEDICARE ADVANTAGE [facility] (WNR) Nov 16, [id number] [phone] HAMIDAREX LINDABOBBY PATIENT [employer] ([employer]) PRESCRIPT ION UAW RETIR EE(WN R) Nov 16, 2009 [id number] [phone] BOBBY LORD MEDICARE (WNR) MEDICARE (M) PART A Nov 16, 2013 PART A [id number] BOBBY LORD PATIENT MEDICARE (WNR) MEDICARE (M) PART B Nov 16, 2013 PART B [id number] BOBBY LORD PATIENT MEDICARE (WNR) MEDICARE (M) PART A Nov 16, 2013 PART A [id number] BOBBY LORD PATIENT MEDICARE (WNR) MEDICARE (M) PART B Nov 16, 2013 PART B [id number] BOBBY LORD PATIENT Selected Encounter This section includes the information on record at [place] for the Encounter. Date/Time Encounter Type Encounter Description Reason Pro vider Source Jun 14, 2025 08:45 AM Outpatient Encounter TELEPHONE TRIAGE IHE Encounter Template Text not used by [place] Plan of Treatment: Future Appointments (+ 6 months) and Future Tests (+/- 45 days) The Plan of Treatment section includes future care activities for the patient from all [place] treatmentfacilities. This section includes future appointments and future orders which are active, pending or scheduled. Future Appointments This section includes appointments that were scheduled to occur 6 months from the date of the Encounter, up to a maximum of 20 appointments. The data comes from all [place] treatment facilities. Appointment Date/Time Appointment Type Appointme nt Facility Name Jul 21, 2025 10:00 AM AMBULATORY - MEDICINE [facility] Encounter Notes: All associated encounter notes This section contains the clinical notes associated to the Encounter. Date/Time Encounter Note(s) Provider Source Jun 14, 2025 08:45 AM RN PROGRESS NOTE: LOCAL TITLE: CCC: CLINICAL TRIAGE STANDARD TITLE: RN PROGRESS NOTE DATE OF NOTE: JUN 14, 2025@08:45:18 ENTRY DATE: JUN 14, 2025@08:45:18 AUTHOR: JOSÉ MIGUEL LOUISE RA COSIGNER: URGENCY: STATUS: COMPLETED Caller Verification Caller/Recipient Relation to Patient: Self Caller Name: BOBBY FROST Emergency Contact: BROOKLYNN RFOST Triage Summary Conducted triage/discussed symptoms Utilized the Triage Tool: Yes Chief Complaint: Dizziness - Vertigo Nurse's Recommendation / WHEN: Now Nurse's Recommendation / WHERE: [facility] Patient Disposition Patient/Caregiver agrees to plan of care: Yes Patient WHERE: Other Other - Patient Where Disposition: [facility] Patient WHEN: Now Patient is Urgent or Emergent Nursing Plan and Disposition Referred patient to higher level of care Transferred to Tele [facility] Other course(s) of action Generated msg to PACT/Provider Provided guidance for worsening symptoms: *Caller/Patient* advised to call facilities [place] Clinical Contact Center or seek immediate medical attention for new or worsening symptoms Nurse Summary Nurse Summary: calling in because he thinks he may have a middle ear infection. [place] has severe dizziness, causing him to move very slowly or he gets sick to his stomach and vomits. He uses his walker to get around to prevent him from falling. He denies ear pain, but reports having these exact symptoms in the past and that's what it was. He denies numbness or weakness to one side of his body. Recommended be evaluated in the ER and [place] became upset stating that he just needs some antibiotics, I've had this before and know what this is. Offered to speak with [facility] to see if they could assist and [place] agreed. Warm transferred call to Moiz Sosa, LAUREN. Clinical Contact Center Codes Clinic/Location: 5 PHONE [facility] RN Decision Support System Output: Triage Complete Triage Date: 06/14/2025, 08:33 AM Triage Note: Decision Support Tool Used: ClearTriage Protocol Used: Dizziness - Vertigo Protocol-Based Disposition: Go to ED Now Positive Triage Question: * SEVERE dizziness (vertigo) (e.g., unable to walk without assistance) Care Advice Discussed: * Note to Triager - Driving * Note to Triager - Ambulance Transport Negative Triage Questions: * [1] Weakness (i.e., paralysis, loss of muscle strength) of the face, arm or leg on one side of the body AND [2] sudden onset AND [3] present now * [1] Numbness (i.e., loss of sensation) of the face, arm or leg on one side of the body AND [2] sudden onset AND [3] present now * [1] Loss of speech or garbled speech AND [2] sudden onset AND [3] present now * Difficult to awaken or acting confused (e.g., disoriented, slurred speech) * Sounds like a life-threatening emergency to the triager IMPORTANT: This note was created by [facility] Clinical Contact Center staff. Please do not alert the staff member by adding them as a signer for future communications. Alerts are not monitored by this user. /es/ JOSÉ MIGUEL ROA RN Signed: 06/14/2025 08:45 Receipt Acknowledged By: 06/14/2025 09:14 /es/ Judith Howe APRN, THA, [facility] for ZEINAB ROBERTSON * AWAITING SIGNATURE * ANGELA NOLAN,JOSÉ MIGUEL WOODARD [facility]
--- OUTSIDE RECORDS SUMMARY | 2025-06-14 03:56 | XMS_ITS | Encounter Summary ---
Author Name [facility] [place] [facility] [place] Address [address] [place] [address] Care Team Providers Care Manager Cargo Name Role Phone ZEINAB ROBERTSON Primary Care [...] Mccrary's Name Patient's Relationship to Policy Mccrary [place] PREFERRED PROVIDER ORGANIZAT ION (PPO) [employer]AW RETIR EE MEDIC AL Nov 16, 2009 [id number] [phone] HAMIDAREX BOBBY LINDA PATIENT [place]BS [place] [facility] (WNR) MEDICARE ADVANTAGE [facility] (WNR) Nov 16, 2018 [id number] [phone] LOUISE LINDABOBBY PATIENT [place] [facility] (WNR) MEDICARE ADVANTAGE [facility] (WNR) Nov 16, [id number] LOUISE LINDABOBBY PATIENT [place]THE[place]BS [place] [facility] (WNR) MEDICARE ADVANTAGE [facility] (WNR) Nov 16, [id number] [phone] BOBBY LORD PATIENT [employer] ([employer]) PRESCRIPT ION UAW RETIR EE(WN R) Nov 16, 2009 [id number] [phone] BOBBY LORD PATIENT MEDICARE (WNR) MEDICARE (M) PART A Nov 16, 2013 PART A [id number] BOBBY LORD PATIENT MEDICARE (WNR) MEDICARE (M) PART B Nov 16, 2013 PART B [id number] BOBBY LORD PATIENT MEDICARE (WNR) MEDICARE (M) PART B Nov 16, 2013 PART B [id number] BOBBY LORD PATIENT MEDICARE (WNR) MEDICARE (M) PART A Nov 16, 2013 PART A [id number] BOBBY LORD PATIENT Selected Encounter This section includes the information on record at [place] for the Encounter. Date/Time Encounter Type Encounter Description Reason Provider Source Jun 14, 2025 08:56 AM BRIEF MARIEL PATE [facility] TELEPHONE/MEDICIN E ICD-10-CM R42 Dizziness and giddiness JOHNNIE FARRELL Encounter Template Text not used by [place] Assessments - Encounter Diagnoses This section includes the primary and secondary diagnoses documented for the Encounter. Date/Time Primary/Secondary Diagnosis Diagnosis Name Provider Source Jun 14, 2025 08:56 AM PRIMARY D[facility] and [facility] Plan of Treatment: Future Appointments (+ 6 months) and Future Tests (+/- 45 days) The Plan of Treatment section includes future care activities for the patient from all [place] treatmentfacilities. This section includes future appointments and future orders which are active, pending or scheduled. Future Appointments This section includes appointments that were scheduled to occur 6 months from the date of the Encounter, up to a maximum of 20 appointments. The data comes from all [place] treatment facilities. Appointment Date/Time Appointment Type Appointme nt Facility Name Jul 21, 2025 10:00 AM AMBULATORY - MEDICINE [facility] Encounter Notes: All associated encounter notes This section contains the clinical notes associated to the Encounter. Date/Time Encounter Note(s) Provider Source Jun 14, 2025 08:57 AM TELEHEALTH NOTE: LOCAL TITLE: TELE EMERGENCY CARE NOTE STANDARD TITLE: TELEHEALTH NOTE DATE OF NOTE: JUN 14, 2025@08:57 ENTRY DATE: JUN 14, 2025@08:57:26 AUTHOR: JOHNNIE FARRELL COSIGNER: URGENCY: STATUS: COMPLETED This is a tele-urgent care visit to address acute/urgent issues. Definitive care on chronic medical issues will be deferred to routine Primary Care appointment/provider. Consult Origin: Referral from the Clinical Contact Center/Call Center Type of Visit: Phone Visit: Visit conducted by telephone. Location/emergency number confirmed. Emergency contact information was obtained as follows: Patient's current address [address] [place] [id number] Patient's CON - Patient Contacts Patient Phone Numbers: Cell: No data available Home: Work: No data available Emergency Contact: Name: BROOKLYNN FROST Relationship: Secondary Emergency Contact: Name: No data available Relationship: No data available Phone: No data available Secondary Next of Kin Contact Name: No data available Relationship: No data available Phone: No data available Subjective: 80 yo M calling for acute dizziness this morning. Woke up this morning dizzy. Vomited once. A few days ago left ear was uncomfortable. Symptoms worsen with head turn or movement. Pt states he is certain this is a middle ear infection. Has not taken any medications. No numbness, tingling, weakness, cp, trouble breathing. Has associated GONCALVES and left ear feels 'plugged up'. Had similar episode 50 years prior. ACTIVE PROBLEMS: Code Description I25.119 Coronary artery disease ([facility] [id number]) I10. Essential hypertension ([facility] [id number]) E78.5 Hyperlipidemia ([facility] 53431506) Z77.098 Exposure to potentially hazardous chemical ([facility] [id number]) Z77.29 Exposure to potentially hazardous substance ([facility] [id number]) M54.50 Low back pain ([facility] [id number]) I73.9 Peripheral vascular disease ([facility] [id number]) M19.90 OA - Osteoarthritis ([facility] [id number]) J30.9 Allergic Rhinitis ([facility] [id number]) ALLERGIES/ADR: Patient has answered NKA Active Outpatient Medications (including Supplies): ATORVASTATIN CALCIUM [...] ONCE A DAY ACTIVE 4 Total Medications Objective: n/a Reason for Referral: Neurologic Assessment/Impression: 80 yo M with acute dizziness, worse with movement. Dx include vertigo, AOM, CVA. Pt does have risk factors for CVA. Pt requires emergent in person evaluation. Plan: Advised of Financial Disclaimer: Patient advised that recommendation for care provided during the call does not constitute an approval or authorization for payment by the [facility] or its staff. Patient advised to report a community ED visit to the [facility] Office of Community Care at . [place] referred to VA or nearest Emergency Department Community Emergency Department Discharge instructions were reviewed Patient verbalizes understanding of the care plan Time spent in telephone/video visit: Minutes: 14 Direct Patient Time:14 minutes Care Coordination and Documentation: 10 minutes Total time: 24 minutes /lamberto/ JOHNNIE FARRELL Signed: 06/14/2025 09:00 JOHNNIE FARRELL [facility]
--- OUTSIDE RECORDS SUMMARY | 2025-06-14 05:00 | XMS_ITS | Continuity of Care Document ---
Author Name [facility] Organization [facility] Care Team Providers Care Finance Lecturer Name Role Phone [facility] Unavailable Unavailable Problems Combined list of problems from Department of Defense and Veterans Affairs facilities. It does not include entries that were removed or entered in error. Problem Status Onset Date Problem Type Date of Resolution Comments Source Allergic Rhinitis (SCT 70386721) Active [place] [facility] Coronary artery disease (SNOMED CT 86444592) Active Condition [place] [facility] Essential hypertension (SNOMED CT 91985638) Active Condition [place] [facility] Exposure [facility] potentially hazardous chemical Active Condition [place] [facility] Exposure to potentially hazardous substance Active Condition [facility] [place] [facility] Hyperlipidemia (SNOMED CT 93754591) Active Condition [place] [facility] Low back pain Active [place] [facility] [place] [facility] OA - Osteoarthritis (SCT 544540413) Active Condition [facility] [place] [facility] Peripheral vascular disease Active Condition [place] [facility] Low [place] Pain Inactive Condition 07/21/2024 [place] [facility] Pain in lower limb (SNOMED CT 96371798) Inactive Condition 07/21/2024 [place] [facility] Peripheral vascular disease (SNOMED CT 538969492) Inactive Condition 07/21/2024 [place] [facility] Routine General Medical Examination at a Health Care Facility * (ICD-9-CM V70.0) Inactive Condition 07/21/2024 [place] [facility] Diagnosis: ICD-10-CM R42 Dizziness and giddiness Active Diagnosis [place] [facility] Diagnosis: ICD-10-CM Z13.5 Encounter for screening for eye and ear disorders Active Diagnosis [place] [facility] Diagnosis: ICD-10-CM Z00.00 Encntr for general adult medical exam w/o abnormal findings Active Diagnosis [place] [facility] Medications Combined list of outpatient medications from Department of Defense and Veterans Affairs facilities.Medications provided include 1) outpatient medications from the last 15 months, and 2) patient-reported medications. Medication Details Route Status Patient Instructions Prescription Expires Prescription Number Last Dispense Date Ordering Provider Order Date Order Qty Source ASPIRIN 81MG TAB,EC TAKE ONE TABLET BY MOUTH ONCE A DAY ORAL ACTIVE BILLIE LOMAX 2018 [facility] ATORVASTATI N CA 80MG TAB TAKE ONE TABLET BY MOUTH EVERY EVENING TO LOWER CHOLESTE ROL (REPORT ANY MUSCLE PAIN OR WEAKNESS ) ORAL ACTIVE 07/22/2025 [id number] Christiano ROBERTSON [address] [place] [address] [facility] ATORVASTATI N CA 80MG TAB TAKE ONE TABLET BY MOUTH EVERY EVENING TO LOWER CHOLESTE ROL (REPORT ANY MUSCLE PAIN OR WEAKNESS ) ORAL DISCONT [facility] 06/15/2024 [id number] 4 BILLIE LOMAX [address] [place], [place] [address]OC CETIRIZINE HCL 10MG TAB TAKE ONE TABLET BY MOUTH ONCE A DAY FOR ALLERGY SYMPTOMS [facility] 07/22/2025 [id number] Christiano ROBERTSON R [address] [place] [address] [facility] LISINOPRIL 10MG TAB TAKE ONE-HALF TABLET BY MOUTH ONCE A DAY FOR HEART OR BLOOD PRESSURE [facility] 07/22/2025 [id number] 5 Christiano ROBERTSON [address] [place] [address] [facility] LISINOPRIL 10MG TAB TAKE ONE-HALF TABLET BY MOUTH ONCE A DAY FOR HEART OR BLOOD PRESSURE ORAL DISCONT [facility] 06/15/2024 [id number] 4 BILLIE LOMAX [address] [place] [address] [facility] Immunizations Combined list of available immunizations from the Department of Defense and [facility] Affairs facilities. 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 Status Comments Source INFLUENZA, HIGH-DOSE, TRIVALENT, PF 2023 MARC KRAUS LEFT DELTO ID [id number] 135 complet ed [facility] INFLUENZA, HIGH-DOSE, QUADRIVALENT 2022 KAYKAY FRANKS RIGHT DELTO ID [id number] 197 complet ed [facility] COVID-19 (MODERNA), MRNA, LNP-S, PF, 50 MCG/0.5 ML (AGES 12+ YEARS) 5 2022 312 complet ed HISTORICA L INFORMATI ON - FROM OTHER REGISTRY, [facility] COVID-19 (MODERNA), MRNA, LNP-S, BIVALENT, PF, 50 MCG/0.5 ML OR 25MCG/0.25 ML DOSE 1 2021 229 complet ed HISTORICA L INFORMATI ON - FROM PATIENT'S WRITTEN RECORD, [facility] COVID-19 (MODERNA), MRNA, LNP-S, PF, 100 MCG/0.5ML DOSE OR 50 MCG/0.25ML DOSE 2020 207 complet ed HISTORICA L INFORMATI ON - FROM PATIENT'S WRITTEN RECORD, Lot#: [id number] [facility] INFLUENZA, INJECTABLE, QUADRIVALENT, PRESERVATIVE FREE 2020 150 complet ed [facility] COVID-19 (MODERNA), MRNA, LNP-S, PF, 100 MCG/0.5 ML DOSE 2 2020 207 complet ed [facility] COVID-19 (MODERNA), MRNA, LNP-S, PF, 100 MCG/0.5 ML DOSE 1 2020 207 complet ed [facility] INFLUENZA, INJECTABLE, QUADRIVALENT, PRESERVATIVE FREE 2019 150 complet ed [facility] INFLUENZA, INJECTABLE, QUADRIVALENT, PRESERVATIVE FREE 2018 150 complet ed [facility] PNEUMOCOCCAL POLYSACCHARID E [id number] 2018 33 complet ed [facility] ZOSTER RECOMBINANT 2 2017 187 complet ed [facility] INFLUENZA, INJECTABLE, QUADRIVALENT, PRESERVATIVE FREE 2017 150 complet ed [facility] ZOSTER RECOMBINANT 1 2017 187 complet ed [facility] INFLUENZA, SEASONAL, INJECTABLE, PRESERVATIVE FREE 2016 140 complet ed Left Deltoid [facility] TDAP 06/14/ 2017 115 complet ed [place] [facility] INFLUENZA, SEASONAL, INJECTABLE, PRESERVATIVE FREE 2015 140 complet ed [place] [facility] INFLUENZA, SEASONAL, INJECTABLE, PRESERVATIVE FREE 2014 140 complet ed [facility] PNEUMOCOCCAL CONJUGATE PCV 13 2014 133 complet ed [facility] INFLUENZA, SEASONAL, INJECTABLE, PRESERVATIVE FREE 2013 140 complet ed [facility] ZOSTER LIVE 2013 FABBY GIBBS 121 comple t ed [place] [facility] ZOSTER LIVE 2013 121 complet ed [facility] INFLUENZA, UNSPECIFIED FORMULATION 2012 88 complet ed [facility] INFLUENZA, UNSPECIFIED FORMULATION 2011 88 complet ed [facility] INFLUENZA (HISTORICAL) 2010 88 complet ed [facility] PNEUMOCOCCAL, UNSPECIFIED FORMULATION 2010 109 complet ed [facility] INFLUENZA, UNSPECIFIED FORMULATION 2010 88 complet ed [facility] Results Combined list of recent chemistry, hematology and other laboratory results from Department of Defense and Veterans Affairs, ranging from 15 months to all on record, depending upon the facility. Order Name Results Value Reference Range Date Interpretation Specimen Comments Source URINALYSIS (STL-PB) COLOR OF URINE Colorless 07/21 Specimen Type: URINE No comment entered. Ordering Provider: Christiano ROBERTSON Report Released Date/Time : Jul 21, 2024 08:13 AM Reporting Lab: [place] [facility] [address] [place] [address] Performin g Lab: [place] [facility] [address] [place] [address] [facility] URINALYSIS (STL-PB) BILIRUBIN.T OTAL [PRESENCE] IN URINE BY TEST STRIP NEGATIVEm g/dL 07/21 Specimen Type: URINE No comment entered. Ordering Provider: Christiano ROBERTSON Report Released Date/Time : Jul 21, 2024 08:13 AM Reporting Lab: [place] [facility] [address] [place] [address] Performin g Lab: [place] [facility] [address] [place] [address] [facility] URINALYSIS (STL-PB) PH OF URINE BY TEST STRIP 7.5 5.0 - 8.0 07/21 Specimen Type: URINE No comment entered. Ordering Provider: Christiano ROBERTSON R Report Released Date/Time : Jul 21, 2024 08:13 AM Reporting Lab: [place] [facility] [address] [place] [address] Performin g Lab: [place] [facility] [address] [place] [address] [facility] URINALYSIS (STL-PB) APPEARANCE OF URINE CLEAR 07/21 Specimen Type: URINE No comment entered. Ordering Provider: Christiano ROBERTSON Report Released Date/Time : Jul 21, 2024 08:13 AM Reporting Lab: [place] [facility] [address] [place] [address] Performin g Lab: [place] [facility] [address] [place] [address] [facility] URINALYSIS (STL-PB) NITRITE [PRESENCE] IN URINE BY TEST STRIP NEGATIVEm g/dL 07/21 Specimen Type: URINE No comment entered. Ordering Provider: Christiano ROBERTSON Report Released Date/Time : Jul 21, 2024 08:13 AM Reporting Lab: [place] [facility] [address] [place] [address] Performin g Lab: [place] [facility] [address] [place] [address] [facility] URINALYSIS (STL-PB) GLUCOSE [MASS/VOLUM E] IN URINE BY TEST STRIP NORMALmg/ dL 07/21 Specimen Type: URINE No comment entered. Ordering Provider: Christiano ROBERTSON Report Released Date/Time : Jul 21, 2024 08:13 AM Reporting Lab: [place] [facility] [address] [place] [address] Performin g Lab: [place] [facility] [address] [place] [address] [facility] URINALYSIS (STL-PB) PROTEIN [MASS/VOLUM E] IN URINE BY TEST STRIP NEGATIVEm g/dL - 20 07/21 Specimen Type: URINE No comment entered. Ordering Provider: Christiano ROBERTSON Report Released Date/Time : Jul 21, 2024 08:13 AM Reporting Lab: [place] [facility] [address] [place] [address] Performin g Lab: [place] [facility] [address] [place] [address] [facility] URINALYSIS (STL-PB) URN.UROBILI NOGEN NORMALmg/ dL 07/21 Specimen Type: URINE No comment entered. Ordering Provider: Christiano ROBERTSON Report Released Date/Time : Jul 21, 2024 08:13 AM Reporting Lab: [place] [facility] [address] [place] [address] Performin g Lab: [place] [facility] [address] [place] [address] [facility] URINALYSIS (STL-PB) HEMOGLOBIN [MASS/VOLUM E] IN URINE BY TEST STRIP NEGATIVEm g/dL 07/21 Specimen Type: URINE No comment entered. Ordering Provider: Christiano ROBERTSON Report Released Date/Time : Jul 21, 2024 08:13 AM Reporting Lab: [place] [facility] [address] [place] [address] Performin g Lab: [place] [facility] [address] [place] [address] [facility] URINALYSIS (STL-PB) KETONES [MASS/VOLUM E] IN URINE BY TEST STRIP NEGATIVEm g/dL 07/21 Specimen Type: URINE No comment entered. Ordering Provider: Christiano ROBERTSON Report Released Date/Time : Jul 21, 2024 08:13 AM Reporting Lab: [place] [facility] [address] [place] [address] Performin g Lab: [place] [facility] [address] [place] [address] [facility] URINALYSIS (STL-PB) URN.LEUK.ES T. NEGATIVE 07/21 Specimen Type: URINE No comment entered. Ordering Provider: Christiano ROBERTSON Report Released Date/Time : Jul 21, 2024 08:13 AM Reporting Lab: [place] [facility] [address] [place] [address] Performin g Lab: [place] [facility] [address] [place] [address] [facility] URINALYSIS (STL-PB) SPECIFIC GRAVITY OF URINE 1.008 1.005 - 1.029 07/21 Specimen Type: URINE No comment entered. Ordering Provider: Christiano ROBERTSON Report Released Date/Time : Jul 21, 2024 08:13 AM Reporting Lab: [place] [facility] [address] [place] [address] Performin g Lab: [place] [facility] [address] [place] [address] [facility] COMPREHENS ROLANDA METABOLIC PANEL CREATININE [MASS/VOLUM E] IN SERUM OR PLASMA 0.98 mg/dL 0.7 - 1.3 07/21 Specimen Type: PLASMA No comment entered. Ordering Provider: Christiano ROBERTSON Report Released Date/Time : Jul 21, 2024 08:13 AM Reporting Lab: [place] [facility] [address] [place] [address] Performin g Lab: [place] [facility] [address] [place] [address] [facility] COMPREHENS ROLANDA METABOLIC PANEL UREA NITROGEN [MASS/VOLUM E] IN SERUM OR PLASMA 10 mg/dL 9 - 25 07/21 Specimen Type: PLASMA No comment entered. Ordering Provider: Christiano ROBERTSON Report Released Date/Time : Jul 21, 2024 08:13 AM Reporting Lab: [place] [facility] [address] [place] [address] Performin g Lab: [place] [facility] [address] [place] [address] 8 [facility] COMPREHENS ROLANDA METABOLIC PANEL GLUCOSE [MASS/VOLUM E] IN SERUM OR PLASMA 102 mg/dL 72 - 99 07/21 H Specimen Type: PLASMA No comment entered. Ordering Provider: Christiano ROBERTSON Report Released Date/Time : Jul 21, 2024 08:13 AM Reporting Lab: [place] [facility] [address] [place] [address] Performin g Lab: [place] [facility] [address] [place] [address] [facility] COMPREHENS ROLANDA METABOLIC PANEL SODIUM [MOLES/VOLU ME] IN SERUM OR PLASMA 139 meq/L 136 - 145 07/21 Specimen Type: PLASMA No comment entered. Ordering Provider: Christiano ROBERTSON Report Released Date/Time : Jul 21, 2024 08:13 AM Reporting Lab: [place] [facility] [address] [place] [address] Performin g Lab: [place] [facility] [address] [place] [address] [facility] COMPREHENS ROLANDA METABOLIC PANEL POTASSIUM [MOLES/VOLU ME] IN SERUM OR PLASMA 4.2 meq/L 3.5 - 5 07/21 Specimen Type: PLASMA No comment entered. Ordering Provider: Christiano ROBERTSON Report Released Date/Time : Jul 21, 2024 08:13 AM Reporting Lab: [place] [facility] [address] [place] [address] Performin g Lab: [place] [facility] [address] [place] [address] [facility] COMPREHENS ROLANDA METABOLIC PANEL CHLORIDE [MOLES/VOLU ME] IN SERUM OR PLASMA 105 meq/L 98 - 107 07/21 Specimen Type: PLASMA No comment entered. Ordering Provider: Christiano ROBERTSON Report Released Date/Time : Jul 21, 2024 08:13 AM Reporting Lab: [place] [facility] [address] [place] [address] Performin g Lab: [place] [facility] [address] [place] [address] [facility] COMPREHENS ROLANDA METABOLIC PANEL CARBON DIOXIDE, TOTAL [MOLES/VOLU ME] IN SERUM OR PLASMA 24 meq/L 22 - 31 07/21 Specimen Type: PLASMA No comment entered. Ordering Provider: Christiano ROBERTSON R Report Released Date/Time : Jul 21, 2024 08:13 AM Reporting Lab: [place] [facility] [address] [place] [address] Performin g Lab: [place] [facility] [address] [place] [address] [facility] COMPREHENS ROLANDA METABOLIC PANEL CALCIUM [MASS/VOLUM E] IN SERUM OR PLASMA 9.3 mg/dL 8.4 - 10.4 07/21 Specimen Type: PLASMA No comment entered. Ordering Provider: Christiano ROBERTSON Report Released Date/Time : Jul 21, 2024 08:13 AM Reporting Lab: [place] [facility] [address] [place] [address] Performin g Lab: [place] [facility] [address] [place] [address] [facility] COMPREHENS ROLANDA METABOLIC PANEL PROTEIN [MASS/VOLUM E] IN SERUM OR PLASMA 6.7 g/dL 6 - 8.6 07/21 Specimen Type: PLASMA No comment entered. Ordering Provider: Christiano ROBERTSON Report Released Date/Time : Jul 21, 2024 08:13 AM Reporting Lab: [place] [facility] [address] [place] [address] Performin g Lab: [place] [facility] [address] [place] [address] [facility] COMPREHENS ROLANDA METABOLIC PANEL ALBUMIN [MASS/VOLUM E] IN SERUM OR PLASMA 4.0 g/dL 3.4 - 5 07/21 Specimen Type: PLASMA No comment entered. Ordering Provider: Christiano ROBERTSON R Report Released Date/Time : Jul 21, 2024 08:13 AM Reporting Lab: [place] [facility] [address] [place] [address] Performin g Lab: [place] [facility] [address] [place] [address] [facility] COMPREHENS ROLANDA METABOLIC PANEL BILIRUBIN.T OTAL [MASS/VOLUM E] IN SERUM OR PLASMA 1.2 mg/dL 0.2 - 1.2 07/21 Specimen Type: PLASMA No comment entered. Ordering Provider: Christiano ROBERTSON Report Released Date/Time : Jul 21, 2024 08:13 AM Reporting Lab: [place] [facility] [address] [place] [address] Performin g Lab: [place] [facility] [address] [place] [address] [facility] COMPREHENS ROLANDA METABOLIC PANEL ALKALINE PHOSPHATASE [ENZYMATIC ACTIVITY/VO LUME] IN SERUM OR PLASMA 78 U/L 40 - 150 07/21 Specimen Type: PLASMA No comment entered. Ordering Provider: Christiano ROBERTSON Report Released Date/Time : Jul 21, 2024 08:13 AM Reporting Lab: [place] [facility] [address] [place] [address] Performin g Lab: [place] [facility] [address] [place] [address] [facility] COMPREHENS ROLANDA METABOLIC PANEL ASPARTATE AMINOTRANSF ERASE [ENZYMATIC ACTIVITY/VO LUME] IN SERUM OR PLASMA 31 U/L 5 - 34 07/21 Specimen Type: PLASMA No comment entered. Ordering Provider: Christiano ROBERTSON R Report Released Date/Time : Jul 21, 2024 08:13 AM Reporting Lab: [place] [facility] [address] [place] [address] Performin g Lab: [place] [facility] [address] [place] [address] [facility] COMPREHENS ROLANDA METABOLIC PANEL ALANINE AMINOTRANSF ERASE [ENZYMATIC ACTIVITY/VO LUME] IN SERUM OR PLASMA 32 U/L 8 - 40 07/21 Specimen Type: PLASMA No comment entered. Ordering Provider: Christiano ROBERTSON R Report Released Date/Time : Jul 21, 2024 08:13 AM Reporting Lab: [place] [facility] [address] [place] [address] Performin g Lab: [place] [facility] [address] [place] [address] [facility] COMPREHENS ROLANDA METABOLIC PANEL GLOMERULAR FILTRATION RATE/1.73 SQ M.PREDICTED [VOLUME RATE/AREA] IN SERUM, PLASMA OR BLOOD BY CREATININE- BASED FORMULA (CKD-EPI 2020) 79 07/21 Specimen Type: PLASMA No comment entered. Ordering Provider: Christiano ROBERTSON Report Released Date/Time : Jul 21, 2024 08:13 AM Reporting Lab: [place] [facility] [address] [place] [address] Performin g Lab: [place] [facility] [address] [place] [address] [facility] CBC LEUKOCYTES [#/VOLUME] IN BLOOD BY AUTOMATED COUNT 7.8 10*3/uL 3.6 - 11.2 07/21 Specimen Type: BLOOD No comment entered. Ordering Provider: Christiano ROBERTSON Report Released Date/Time : Jul 21, 2024 08:13 AM Reporting Lab: [place] [facility] [address] [place] [address] Performin g Lab: [place] [facility] [address] [place] [address] [facility] CBC ERYTHROCYTE S [#/VOLUME] IN BLOOD BY AUTOMATED COUNT 5.34 10*6/uL 4.10 - 5.70 07/21 Specimen Type: BLOOD No comment entered. Ordering Provider: Christiano ROBERTSON R Report Released Date/Time : Jul 21, 2024 08:13 AM Reporting Lab: [place] [facility] [address] [place] [address] Performin g Lab: [place] [facility] [address] [place] [address] [facility] CBC HEMOGLOBIN [MASS/VOLUM E] IN BLOOD 16.7 g/dL 13.1 - 16.8 07/21 Specimen Type: BLOOD No comment entered. Ordering Provider: Christiano ROBERTSON Report Released Date/Time : Jul 21, 2024 08:13 AM Reporting Lab: [place] [facility] [address] [place] [address] Performin g Lab: [place] [facility] [address] [place] [address] [facility] CBC HEMATOCRIT [VOLUME FRACTION] OF BLOOD 48.2 38.2 - 48.4 07/21 Specimen Type: BLOOD No comment entered. Ordering Provider: Christiano ROBERTSON R Report Released Date/Time : Jul 21, 2024 08:13 AM Reporting Lab: [place] [facility] [address] [place] [address] Performin g Lab: [place] [facility] [address] [place] [phone] [facility] CBC MCV [ENTITIC VOLUME] BY AUTOMATED COUNT 90.3 fL 80.0 - 100.0 07/21 Specimen Type: BLOOD No comment entered. Ordering Provider: Christiano ROBERTSON R Report Released Date/Time : Jul 21, 2024 08:13 AM Reporting Lab: [place] [facility] [address] [place] [phone] 8 Performin g Lab: [place] [facility] [address] [place] [phone] [facility] CBC MCH [ENTITIC MASS] BY AUTOMATED COUNT 31.3 pg 27.0 - 34.0 07/21 Specimen Type: BLOOD No comment entered. Ordering Provider: Christiano ROBERTSON R Report Released Date/Time : Jul 21, 2024 08:13 AM Reporting Lab: [place] [facility] [address] [place] [phone] Performin g Lab: [place] [facility] [address] [place] [phone] [facility] CBC MCHC [MASS/VOLUM E] BY AUTOMATED COUNT 34.6 g/dL 33.0 - 36.0 07/21 Specimen Type: BLOOD No comment entered. Ordering Provider: Christiano ROBERTSON R Report Released Date/Time : Jul 21, 2024 08:13 AM Reporting Lab: [place] [facility] [address] [place] [id number] 8 Performin g Lab: [place] [facility] [address] [place] [phone] [facility] CBC PLATELETS [#/VOLUME] IN BLOOD BY AUTOMATED COUNT 211 10*3/uL 150 - 400 07/21 Specimen Type: BLOOD No comment entered. Ordering Provider: Christiano ROBERTSON R Report Released Date/Time : Jul 21, 2024 08:13 AM Reporting Lab: [place] [facility] [address] [place] [address] Performin g Lab: [place] [facility] [address] [place] [address] [facility] CBC PLATELET MEAN VOLUME [ENTITIC VOLUME] IN BLOOD BY AUTOMATED COUNT 10.6 fL 7.5 - 11.2 07/21 Specimen Type: BLOOD No comment entered. Ordering Provider: Christiano ROBERTSON Report Released Date/Time : Jul 21, 2024 08:13 AM Reporting Lab: [place] [facility] [address] [place] [address] 8 Performin g Lab: [place] [facility] [address] [place] [address] [facility] CBC ERYTHROCYTE DISTRIBUTIO N WIDTH [RATIO] BY AUTOMATED COUNT 12.9 11.8 - 15.1 07/21 Specimen Type: BLOOD No comment entered. Ordering Provider: Christiano ROBERTSON Report Released Date/Time : Jul 21, 2024 08:13 AM Reporting Lab: [place] [facility] [address] [place] [address] Performin g Lab: [place] [facility] [address] [place] [address] [facility] CBC LYMPHOCYTES /100 LEUKOCYTES IN BLOOD BY AUTOMATED COUNT 24.1 07/21 Specimen Type: BLOOD No comment entered. Ordering Provider: Christiano ROBERTSON R Report Released Date/Time : Jul 21, 2024 08:13 AM Reporting Lab: [place] [facility] [address] [place] [address] Performin g Lab: [place] [facility] [address] [place] [address] 8 [facility] CBC MONOCYTES/1 00 LEUKOCYTES IN BLOOD BY AUTOMATED COUNT 6.6 07/21 Specimen Type: BLOOD No comment entered. Ordering Provider: Christiano ROBERTSON Report Released Date/Time : Jul 21, 2024 08:13 AM Reporting Lab: [place] [facility] [address] [place] [address] Performin g Lab: [place] [facility] [address] [place] [address] 8 [facility] CBC NEUTROPHILS /100 LEUKOCYTES IN BLOOD BY AUTOMATED COUNT 67.0 07/21 Specimen Type: BLOOD No comment entered. Ordering Provider: Christiano ROBERTSON Report Released Date/Time : Jul 21, 2024 08:13 AM Reporting Lab: [place] [facility] [address] [place] [address] Performin g Lab: [place] [facility] [address] [place] [address] 8 [facility] CBC EOSINOPHILS /100 LEUKOCYTES IN BLOOD BY AUTOMATED COUNT 1.9 07/21 Specimen Type: BLOOD No comment entered. Ordering Provider: Christiano ROBERTSON Report Released Date/Time : Jul 21, 2024 08:13 AM Reporting Lab: [place] [facility] [address] [place] [address] 8 Performin g Lab: [place] [facility] [address] [place] [address] 8 [facility] CBC BASOPHILS/1 00 LEUKOCYTES IN BLOOD BY AUTOMATED COUNT 0.3 07/21 Specimen Type: BLOOD No comment entered. Ordering Provider: Christiano ROBERTSON Report Released Date/Time : Jul 21, 2024 08:13 AM Reporting Lab: [place] [facility] [address] [place] [address] 8 Performin g Lab: [place] [facility] [address] [place] [address] 8 [facility] CBC LYMPHOCYTES [#/VOLUME] IN BLOOD BY AUTOMATED COUNT 1.87 10*3/uL 0.77 - 4.50 07/21 Specimen Type: BLOOD No comment entered. Ordering Provider: Christiano ROBERTSON Report Released Date/Time : Jul 21, 2024 08:13 AM Reporting Lab: [place] [facility] [address] [place] [address] 8 Performin g Lab: [place] [facility] [address] [place] [address] [facility] CBC MONOCYTES [#/VOLUME] IN BLOOD BY AUTOMATED COUNT 0.51 10*3/uL 0.19 - 0.8 07/21 Specimen Type: BLOOD No comment entered. Ordering Provider: Christiano ROBERTSON R Report Released Date/Time : Jul 21, 2024 08:13 AM Reporting Lab: [place] [facility] [address] [place] [address] 8 Performin g Lab: [place] [facility] [address] [place] [address] 8 [facility] CBC NEUTROPHILS [#/VOLUME] IN BLOOD BY AUTOMATED COUNT 5.21 10*3/uL 2.10 - 8.00 07/21 Specimen Type: BLOOD No comment entered. Ordering Provider: Christiano ROBERTSON R Report Released Date/Time : Jul 21, 2024 08:13 AM Reporting Lab: [place] [facility] [address] [place] [address] Performin g Lab: [place] [facility] [address] [place] [address] [facility] CBC EOSINOPHILS [#/VOLUME] IN BLOOD BY AUTOMATED COUNT 0.15 10*3/uL 0.00 - 0.60 07/21 Specimen Type: BLOOD No comment entered. Ordering Provider: Christiano ROBERTSON R Report Released Date/Time : Jul 21, 2024 08:13 AM Reporting Lab: [place] [facility] [address] [place] [address] Performin g Lab: [place] [facility] [address] [place] [address] [facility] CBC BASOPHILS [#/VOLUME] IN BLOOD BY AUTOMATED COUNT 0.02 10*3/uL 0.00 - 0.20 07/21 Specimen Type: BLOOD No comment entered. Ordering Provider: Christiano ROBERTSON R Report Released Date/Time : Jul 21, 2024 08:13 AM Reporting Lab: [place] [facility] [address] [place] [address] Performin g Lab: [place] [facility] [address] [place] [address] [facility] CBC IMMATURE GRANULOCYTE S/100 LEUKOCYTES IN BLOOD BY AUTOMATED COUNT 0.1 07/21 Specimen Type: BLOOD No comment entered. Ordering Provider: Christiano ROBERTSON Report Released Date/Time : Jul 21, 2024 08:13 AM Reporting Lab: [place] [facility] [address] [place] [address] Performin g Lab: [place] [facility] [address] [place] [address] 8 [facility] CBC IMMATURE GRANULOCYTE S [#/VOLUME] IN BLOOD BY AUTOMATED COUNT 0.01 10*3/uL 0.00 - 0.05 07/21 Specimen Type: BLOOD No comment entered. Ordering Provider: Christiano ROBERTSON R Report Released Date/Time : Jul 21, 2024 08:13 AM Reporting Lab: [place] [facility] [address] [place] [address] Performin g Lab: [place] [facility] [address] [place] [address] [facility] CHOLESTERO L PANEL (PB) CHOLESTEROL [MASS/VOLUM E] IN SERUM OR PLASMA 105 mg/dL 0 - 200 07/21 Specimen Type: PLASMA No comment entered. Ordering Provider: Christiano ROBERTSON R Report Released Date/Time : Jul 21, 2024 08:13 AM Reporting Lab: [place] [facility] [address] [place] [address] Performin g Lab: [place] [facility] [address] [place] [address] [facility] CHOLESTERO L PANEL (PB) TRIGLYCERID E [MASS/VOLUM E] IN SERUM OR PLASMA 56 mg/dL 0 - 150 07/21 Specimen Type: PLASMA No comment entered. Ordering Provider: Christiano ROBERTSON Report Released Date/Time : Jul 21, 2024 08:13 AM Reporting Lab: [place] [facility] [address] [place] [address] Performin g Lab: [place] [facility] [address] [place] [address] 8 [facility] CHOLESTERO L PANEL (PB) CHOLESTEROL IN LDL [MASS/VOLUM E] IN SERUM OR PLASMA BY CALCULATION 58.8 mg/dL 07/21 Specimen Type: PLASMA No comment entered. Ordering Provider: Christiano ROBERTSON Report Released Date/Time : Jul 21, 2024 08:13 AM Reporting Lab: [place] [facility] [address] [place] [address] 8 Performin g Lab: [place] [facility] [address] [place] [address] [facility] CHOLESTERO L PANEL (PB) CHOLESTEROL IN HDL [MASS/VOLUM E] IN SERUM OR PLASMA 35.0 mg/dL 40 07/21 L Specimen Type: PLASMA No comment entered. Ordering Provider: Christiano ROBERTSON Report Released Date/Time : Jul 21, 2024 08:13 AM Reporting Lab: [place] [facility] [address] [place] [address] Performin g Lab: [place] [facility] [address] [place] [address] 8 [facility] CHOLESTERO L PANEL (PB) CHOLESTEROL IN HDL/CHOLEST JORGE.TOTAL [MASS RATIO] IN SERUM OR PLASMA 33.3 25 07/21 Specimen Type: PLASMA No comment entered. Ordering Provider: Christiano ROBERTSON R Report Released Date/Time : Jul 21, 2024 08:13 AM Reporting Lab: [place] [facility] [address] [place] [address] Performin g Lab: [place] [facility] [address] [place] [address] [facility] TSH (MA-PB) THYROTROPIN [UNITS/VOLU ME] IN SERUM OR PLASMA 1.864 u[IU]/mL 0.47 - 5 07/21 Specimen Type: SERUM No comment entered. Ordering Provider: Christiano ROBERTSON Report Released Date/Time : Jul 21, 2024 08:13 AM Reporting Lab: [place] [facility] [address] [place] [address] Performin g Lab: [place] [facility] [address] [place] [address] [facility] VITAMIN D, 25-HYDROXY 25-HYDROXYV ITAMIN D3 [MASS/VOLUM E] IN SERUM OR PLASMA 48.3 ng/mL 30 - 96 07/21 Specimen Type: SERUM No comment entered. Ordering Provider: Christiano ROBERTSON Report Released Date/Time : Jul 21, 2024 08:13 AM Reporting Lab: [place] [facility] [address] [place] [address] Performin g Lab: [place] [facility] [address] [place] [address] [facility] HGA1C HEMOGLOBIN A1C/HEMOGLO BIN.TOTAL IN BLOOD 5.6 4.0 - 6.0 07/21 Specimen Type: BLOOD No comment entered. Ordering Provider: Christiano ROBERTSON Report Released Date/Time : Jul 21, 2024 08:13 AM Reporting Lab: [place] [facility] [address] [place] [address] Performin g Lab: [place] [facility] [address] [place] [address] [facility] Vital Signs Combined list of inpatient and outpatient Vital Signs from Department of Defense and Veterans Affairs, ranging from 12 months to all on record, depending upon the facility. Vital Sign Value Date Comments Source SYSTOLIC BLOOD PRESSURE 139 07/21/2024 10:22:00 [facility] DIASTOLIC BLOOD PRESSURE 80 07/21/2024 10:22:00 [facility] PULSE OXIMETRY 97 07/21/2024 10:22:00 [facility] WEIGHT 216.0 07/21/2024 10:22:00 [facility] BMI 27 kg/m2 07/21/2024 10:22:00 [facility] PAIN 0 07/21/2024 10:22:00 [facility] HEIGHT 75.0 07/21/2024 10:22:00 [facility] TEMPERATURE 97.9 07/21/2024 10:22:00 [facility] PULSE 61 07/21/2024 10:22:00 [facility] RESPIRATION 18 07/21/2024 10:22:00 [facility] Encounters Combined list of: 1) Encounters from Department of Veterans Affairs facilities going backup to the last 18 months, not all VA inpatient encounters are included; 2) Encounters from the Department of Defense facilities going backup to 280 months. Location Location Details Encounter Type Encounter Number Reason For Visit Attending Provider ADM Date DC Date Status Disposition Source [facility] Outpatient Encounter [id number] 02/15 [facility] Outpatient Encounter [id number] 02/16 [facility] Outpatient Encounter [id number] 02/18 [facility] Outpatient Encounter [id number] PRANAY ROBERTSON 07/21 [facility] [place] ADMIN [id number] Diagnos is: ICD-10- CM Z00.00 Encntr for general adult medical exam w/o abnorma l finding s PRANAY ROBERTSON R 07/21 [facility] FUNDUS PHOTOGRAPH Y W/I&R [id number] Diagnos is: ICD-10- CM Z13.5 Encount er for screeni ng for eye and ear disorde rs SRIKANTH LYNCH 07/21 [facility] [place] [facility] Outpatient Encounter [id number] Diagnos is: ICD-10- CM Z13.5 Encount er for screeni ng for eye and ear disorde rs CONNER GALEAS S 07/21 [place] [facility] Outpatient Encounter [id number] SRIKANTH LYNCH 07/21 [facility] Outpatient Encounter [id number] 08/02 [facility] Outpatient Encounter [id number] 08/16 [facility] [place] [facility] Outpatient Encounter [id number] 08/18 [place] [facility] Outpatient Encounter [id number] 08/18 [facility] Outpatient Encounter [id number] 02/23 [facility] Outpatient Encounter [id number] 03/02 [facility] [place] [facility] Outpatient Encounter [id number] CAROL PERDOMO RET 06/14 [place] [facility] [place] [facility] Outpatient Encounter [id number] 06/14 [place] [facility] [place] [facility] BRIEF COMUNICAJ TECH-BSD SVC [id number] Diagnos is: ICD-10- CM R42 Dizzine ss and giddine ss RIAZ FARRELL 06/14 [place] [facility] Social History Combined list of available smoking, tobacco, and other social history from Department of Defense and Veterans Affairs facilities. Social History Type Response Date Comment Sourc e Tobacco smoking status NHIS VA-TOBACCO NEVER USED 07/21/2024 [facility] History of tobacco use VA-TOBACCO NEVER USED 07/16/2023 [place] [place] [place] [facility] History of tobacco use VA-TOBACCO NEVER USED 05/09/2022 [place] [facility] History of tobacco use VA-TOBACCO NEVER USED 05/09/2021 [place] [facility] History of tobacco use VA-TOBACCO NEVER USED 10/25/2018 [place] [facility] History of tobacco use LIFETIME NON-USER OF TOBACCO 11/19/2009 [place] [facility] Plan of Care List of future care activities from Department of Veterans Affairs facilities. Additional future care activities may be listed in the Assessment and Plan section. Date/Time Care Activity Care Activity Detail Facili ty 07/21/2025 AMBULATORY - MEDICINE AMBULATORY - MEDICI NE [facility]
[2025-06-14 10:17] VITALS: BP 156/89; PULSE 57; RESP 16; TEMP 36.5; O2SAT 97
--- NOTE | 2025-06-14 10:27 | W.ED.NAVMDI ---
HPI - Nausea/Vomiting/Diarrhea General: Chief complaint: Nausea/Vomiting/Diarrhea Stated complaint: dizzy/nausea Time Seen by Provider: 06/14/25 10:08 History of Present Illness: 80-year-old male presents emergency room with dizziness nausea vertiginous-like symptoms for the last 3 days along with pressure in his left ear. States he previously had a left ear infection and cause similar symptoms. Dizziness worsened this morning to the point to 7 episodes of vomiting. He denies any chest pain no fever sweats chills no drainage from the affected ear Associated symtoms: Denies chest pain or dysuria Related Data Home Medications ?Medication ?Instructions ?Recorded ?Confirmed aspirin 81 mg tablet,delayed 81 mg PO DAILY 05/17/20 06/14/25 release (Adult Low Dose Aspirin) atorvastatin 80 mg tablet (Lipitor) 80 mg PO QPM 05/17/20 06/14/25 lisinopril 10 mg tablet 5 mg PO DAILY 05/17/20 06/14/25 multivitamin 1 tab PO DAILY 05/17/20 06/14/25 potassium gluconate 595 mg (99 mg) 595 mg PO DAILY 04/17/22 06/14/25 tablet cholecalciferol (vitamin D3) 250 250 mcg PO DAILY 01/15/23 06/14/25 mcg (10,000 unit) capsule magnesium chloride 64 mg 64 mg PO DAILY 01/15/23 06/14/25 (magnesium chloride) tablet cetirizine 10 mg tablet 10 mg PO DAILY 03/02/25 06/14/25 Allergies Allergy/AdvReac Type Severity Reaction Status Date / Time No Known Allergies Allergy Verified 03/02/25 11:31 Review of Systems Const: Denies: fever(s) or chills Card: Denies: chest pain Resp: Denies: dyspnea GI: Denies: abdominal pain : Denies: dysuria, urinary frequency or urinary urgency Musc: Denies: neck pain or back pain Skin/Breast: Denies: rash PFSH ED PFSH: Medical History Mixed hyperlipidemia CAD (coronary artery disease) with stent placed 2001 Hypertension Lumbar disc disease Surgical History History of back surgery S/P knee replacement Family History Mother Stroke Father Diabetes Denies family history of CAD (coronary artery disease) Clotting disorder Dementia Hyperlipidemia Chronic kidney disease (CKD) Suicide Anesthesia complication Bleeding disorder Lung disease Cancer Hypertension Social History Smoking and tobacco/nicotine status: never used tobacco/nicotine Alcohol intake: former Substance/Drug Use: never Physical Exam Const: COMMON NORMALS: no acute distress GENERAL APPEARANCE: cooperative and comfortable ORIENTATION/CONSCIOUSNESS: Yes awake, Yes oriented to person, Yes oriented to place and Yes oriented to time HENMT: COMMON NORMALS: normocephalic, atraumatic and hearing grossly normal bilaterally HEAD & SCALP: normocephalic and atraumatic Resp: COMMON NORMALS: normal respiratory effort, No retractions, No use of accessory muscles and clear to auscultation bilaterally AUSCULTATION: clear to auscultation bilaterally Cardio: COMMON NORMALS: regular rate, regular rhythm and No murmurs present (Cardio) RATE: regular rate RHYTHM: regular rhythm GI: COMMON NORMALS: Soft to palpation and No hepatosplenomegaly present AUSCULTATION: Yes normoactive bowel sounds PALPATION: Yes Soft to palpation, No Tenderness to palpation present (GI), No Guarding due to palpation present (GI) and Yes No hepatosplenomegaly present Extremity: COMMON NORMALS: normal to inspection, capillary refill normal, no clubbing, cyanosis or edema, no calf tenderness and no pedal edema Neuro: SENSORIUM/ORIENTATION: Yes oriented to person, Yes oriented to place and Yes oriented to time Skin: COMMON NORMALS: no rashes or lesions noted GENERAL SKIN EXAM: no rashes or lesions noted Course Vital Signs: Vital signs: Vital Signs Temperature 97.7 F 06/14/25 10:17 Pulse Rate 63 06/14/25 15:20 Respiratory Rate 16 06/14/25 10:17 Blood Pressure 126/75 06/14/25 11:45 Pulse Oximetry 95 06/14/25 15:20 Oxygen Delivery Me thod Room Air 06/14/25 15:20 MDM - Nausea/Vomiting/Diarrhea Medical Decision Making Patient presented with dizziness with nausea and vomiting. He has no other focal neurologic deficits. Been having any ear discomfort and dizziness intermittently for 3 days prior but not to this extent when he went to bed last night he states he felt fairly well but this morning when he woke up much more severe dizziness has persisted throughout the day while here he had difficulty even doing the CT because of dizziness induced by the movement when he lays very still he is okay he does have a little lateral nystagmus to the left. He was given Ativan and attempted to ambulate him and did not work well were going to go ahead and admit him for labyrinthitis. Another possibility would be posterior stroke but he has had intermittent symptoms for several days he is outside of any of the window for treatment. We did do a CT of his head as well as a CTA head and neck all of which was negative. NIH at presentation and at this time is 0. Lab Data 06/14/25 10:20 06/14/25 10:[address] 06/14/25 10:32 IMPRESSION: 1. No evidence of intracranial hemorrhage or mass effect. 2. Moderate small vessel changes with moderate parenchymal volume loss. 3. Vascular calcification. 4. Mastoid air cells are well aerated. 5. No acute intracranial findings. Head/Neck CTA 06/14/25 11:53 IMPRESSION: 1. Less than 50% cervical ICA stenosis bilaterally. 2. RIGHT dominant vertebral artery. Smaller but patent LEFT vertebral artery partially obscured proximally by the injection. 3. Mild intracranial atheromatous disease. No evidence of proximal flow-limiting stenosis. Laboratory Results WBC 7.43 10^3/uL (3.29-11.43) 06/14/25 10:20 RBC 5.13 10^6/uL (3.85-5.65) 06/14/25 10:20 Hgb 16.30 g/dL (11.27-16.99) 06/14/25 10:20 Hct 46.5 % (37-53) 06/14/25 10:20 MCV 90.6 fl (82-101) 06/14/25 10:20 MCH 31.8 pg (27-33) 06/14/25 10:20 MCHC 35.1 g/dL (30-55) 06/14/25 10:20 RDW 12.8 % (12.1-15.1) 06/14/25 10:20 Plt Count 180 10^3/cmm (157-399) 06/14/25 10:20 MPV 10.6 fL (7.4-10.4) H 06/14/25 10:20 Neut % (Auto) 75.9 % 06/14/25 10:20 Lymph % (Auto) 16.8 % 06/14/25 10:20 Braxton % (Auto) 5.4 % 06/14/25 10:20 Eos % (Auto) 1.3 % 06/14/25 10:20 Baso % (Auto) 0.3 % 06/14/25 10:20 Neut # (Auto) 5.64 10^3/uL (1.8-7.7) 06/14/25 10:20 Lymph # (Auto) 1.3 10^3/uL (0.8-4.8) 06/14/25 10:20 Braxton # (Auto) 0.4 10^3/uL (0.2-0.9) 06/14/25 10:20 Eos # (Auto) 0.1 10^3/uL (0.0-0.8) 06/14/25 10:20 Baso # (Auto) 0.0 10^3/uL (0.0-0.1) 06/14/25 10:20 Nucleated RBC % (auto) 0 % 06/14/25 10:20 Nucleated RBCs # 0.0 /100WBC 06/14/25 10:20 Sodium 140 mmol/L (136-145) 06/14/25 10:20 Potassium 4.1 mmol/L (3.5-5.1) 06/14/25 10:20 Chloride 104 mmol/L (98-107) 06/14/25 10:20 Carbon Dioxide 27 mmol/L (22-29) 06/14/25 10:20 Anion Gap 13.1 (5-19) 06/14/25 10:20 BUN 11 mg/dL (8-23) 06/14/25 10:20 Creatinine 1.0 mg/dL (0.7-1.2) 06/14/25 10:20 GFR Calculation Not Reportable 06/14/25 10:20 Glucose 128 mg/dL (65-115) H 06/14/25 10:20 Calculated Osmolality 291 mOsm/kg (285-295) 06/14/25 10:20 Calcium 9.1 mg/dL (8.5-10.5) 06/14/25 10:20 Total Bilirubin 1.0 mg/dL (0.15-1.2) 06/14/25 10:20 AST 30 U/L (0-40) 06/14/25 10:20 ALT 33 U/L (0-41) 06/14/25 10:20 Alkaline Phosphatase 72 U/L (40-130) 06/14/25 10:20 Total Protein 6.5 g/dL (6.6-8.7) L 06/14/25 10:20 Albumin 3.9 g/dL (3.5-5.2) 06/14/25 10:20 Globulin 2.6 g/dL (1.3-4.6) 06/14/25 10:20 Urine Color Yellow (Yellow) 06/14/25 12:56 Urine Appearance Clear (CLEAR) 06/14/25 12:56 Urine pH 8.5 (5-7) A 06/14/25 12:56 Ur Specific Osteen 1.030 (1.005-1.030) 06/14/25 12:56 Urine Protein Negative (Negative) 06/14/25 12:56 Urine Glucose (UA) Negative (Normal) 06/14/25 12:56 Urine Ketones Negative (Negative) 06/14/25 12:56 Urine Blood Negative (Negative) 06/14/25 12:56 Urine Nitrate Negative (Negative) 06/14/25 12:56 Urine Bilirubin Negative (Negative) 06/14/25 12:56 Urine Urobilinogen 1.0 mg/dL (Negative) 06/14/25 12:56 Ur Leukocyte Esterase Negative (Negative) 06/14/25 12:56 Urine RBC 0-2 /hpf (0-2) 06/14/25 12:56 Urine WBC 0-5 /hpf (0-5) 06/14/25 12:56 Ur Squamous Epith Cells 0-5 /hpf (0-5) 06/14/25 12:56 Amorphous Sediment Not Reportable 06/14/25 12:56 Urine Bacteria None seen /hpf (NONE) 06/14/25 12:56 Hyaline Casts 0.81 /lpf 06/14/25 12:56 All radiology interpretation(s) finalized by discharge Discharge Plan Discharge Patient Disposition: Placed in Observation Admit Provider: Veto Allen Clinical Impression: Labyrinthitis Coding Level of Care Code ED Paintings Restorer for Leanna Schuler NIH stroke score NIHSS Level Of Consciousness - 1a: 0 Level Of Consciousness Questions - 1b: Both Correct Level Of Consciousness Commands - 1c: Both Correct Best Gaze - 2: Normal Visual Gu[place] - 3: No Visual Loss Facial Palsy - 4: Normal Motor Arm Right - 5: No Drift Motor Arm Left - 5: No Drift Motor Leg Right - 6: No Drift Motor Leg Left - 6: No Drift Limb Ataxia - 7: Absent Sensory - 8: Normal Best Language - 9: No Aphasia Dysarthia - 10: Normal Extinction And Inattention - 11: 0 Score Total Score: 0
--- NOTE | 2025-06-14 10:32 | CT_ITS ---
WS: [id number] CT HEAD TECHNIQUE: Noncontrast CT of the head obtained from the skullbase to the vertex. CLINICAL INFORMATION: Dizziness left ear pain COMPARISON: None. DLP: 1097.[address] scans at [facility] use at least one of these dose optimization techniques: automated exposure control; mA and/or kV adjustment per patient size (includes targeted exams where dose is matched to clinical indication); or iterative reconstruction. FINDINGS: No evidence of intracranial hemorrhage or mass effect. Ventricular system and basal cisterns are patent. Moderate small vessel changes with moderate parenchymal volume loss. No extra-axial fluid collections. No evidence of mass or mass effect. Paranasal sinuses and mastoid air cells are well aerated. .Normal visualized soft tissues. CT/CT head wo con* [id number] IMPRESSION: 1. No evidence of intracranial hemorrhage or mass effect. 2. Moderate small vessel changes with moderate parenchymal volume loss. 3. Vascular calcification. 4. Mastoid air cells are well aerated. 5. No acute intracranial findings.
[2025-06-14 10:35] LABS: Hematocrit 46.5 % (37-53); Hemoglobin 16.30 g/dL (11.27-16.99); Mean Corpuscular HGB Conc 35.1 g/dL (30-55); Mean Corpuscular Hemoglobin 31.8 pg (27-33); Mean Corpuscular Volume 90.6 fl (82-101); Nucleated Red Blood Cells % 0 %; Platelet Count 180 10^3/cmm (157-399); Red Blood Count 5.13 10^6/uL (3.85-5.65); White Blood Count 7.43 10^3/uL (3.29-11.43)
[2025-06-14 10:43] LABS: Alanine Aminotransferase 33 U/L (0-41); Albumin Level 3.9 g/dL (3.5-5.2); Alkaline Phosphatase 72 U/L (40-130); Anion Gap 13.1 (5-19); Aspartate Amino Transferase 30 U/L (0-40); Blood Urea Nitrogen 11 mg/dL (8-23); Calcium 9.1 mg/dL (8.5-10.5); Carbon Dioxide 27 mmol/L (22-29); Chloride 104 mmol/L (98-107); Creatinine Clr Calc Pharmacy 76.7719; Globulin 2.6 g/dL (1.3-4.6); Glucose 128 mg/dL (65-115); Osmolality Calculated 291 mOsm/kg (285-295); Potassium 4.1 mmol/L (3.5-5.1); Sodium 140 mmol/L (136-145); Total Protein 6.5 g/dL (6.6-8.7)
[2025-06-14] MEDS: ondansetron 2 mg/ML SDV 2 mL 4 MG IVP (11:07)
[2025-06-14 11:45] VITALS: BP 126/75; PULSE 57; O2SAT 97
--- NOTE | 2025-06-14 11:53 | CT_ITS ---
WS: [id number] CTA HEAD AND NECK TECHNIQUE: Contrast enhanced CTA of the head and neck with coronal and sagittal reformatted images and maximum intensity projection (MIP) images. NASCET criteria utilized. CLINICAL INFORMATION: Vertigo nausea vomiting x 3 days COMPARISON: None. DLP: 498.[address] scans at [facility] use at least one of these dose optimization techniques: automated exposure control; mA and/or kV adjustment per patient size (includes targeted exams where dose is matched to clinical indication); or iterative reconstruction. FINDINGS: RIGHT: RIGHT common carotid artery is patent. No significant RIGHT ICA stenosis. Mild atheromatous disease RIGHT carotid bulb. LEFT: LEFT common carotid artery is patent. Moderate calcified atheromatous disease LEFT carotid bulb. Less than 50% LEFT ICA stenosis. RIGHT dominant vertebral artery. Smaller LEFT vertebral artery appears patent. LEFT vertebral artery is partially obscured proximally by the contrast injection. Vertebral arteries are patent to the basilar junction. INTRACRANIAL CTA: Basilar artery is patent. Normal vascularity to the [employer] territory bilaterally. Mild intracranial atheromatous disease. Both ICAs are patent at the skull base. Cavernous carotid calcification. Normal vascularity to the MERRY and MCA territories bilaterally. No evidence of proximal flow-limiting stenosis. Fibrosis in the lung apices. Small nodules in both upper lobes measuring 3 to 4 mm. Prominent anterior hypertrophic changes lower cervical spine CT/CT angio headneck* [id number]/[id number] IMPRESSION: 1. Less than 50% cervical ICA stenosis bilaterally. 2. RIGHT dominant vertebral artery. Smaller but patent LEFT vertebral artery p artially obscured proximally by the injection. 3. Mild intracranial atheromatous disease. No evidence of proximal flow-limiti ng stenosis.
[2025-06-14] MEDS: LORazepam 1 MG/0.5 ML injection IVP (12:05)
[2025-06-14] MEDS: iohexol 350 mg/mL 500 mL Btl (per mL) IV (12:15)
[2025-06-14 13:08] LABS: Glucose Urine UA Negative (Normal); Nitrate Urine Negative (Negative); Specific Gravity, Urine 1.030 (1.005-1.030)
[2025-06-14 13:13] LABS: Add Urine Microscopic? YES
--- NOTE | 2025-06-14 14:28 | PM.HP ---
Providers/Chief Complaint Admitting Physician: Dr. Allen Primary Care Provider: Martine Alas MD Chief Complaint: dizzy/nausea History of Present Illness Fabio Somers is a 80 year old male presenting with dizziness that started this AM. He noticed extreme dizziness associated with nausea and vomiting. Symptoms were worse with standing and head movement. He had an episode similar to this a long time ago and said he was in the hospital for a prolonged period related to this. Symptoms currently improved but he states he can reproduce them with head movements in bed. Admitted for further treatment of dizziness. Review of Systems Const: Denies: fever(s), chills or body aches Eyes: Denies: change in vision ENMT: Denies: mouth pain or dental pain Card: Denies: chest pain or palpitations Resp: Denies: dyspnea or productive cough GI: Reports: nausea and vomiting; Denies: abdominal pain : Denies: flank pain, difficulty urinating, dysuria, urinary frequency or urinary urgency Musc: Denies: neck pain or back pain Skin/Breast: Denies: rash, pruritus or erythema Neuro: Reports: vertigo; Denies: headache(s) or numbness in extremities Psych: Denies: anxiety or depression Medications/Allergies Home Medications ?Medication ?Instructions ?Recorded ?Confirmed ?Last Taken ?Type aspirin 81 mg tablet,delayed 81 mg PO DAILY 05/17/20 06/14/25 06/13/25 History release (Adult Low Dose Aspirin) atorvastatin 80 mg tablet (Lipitor) 80 mg PO QPM 05/17/20 06/14/25 06/13/25 History lisinopril 10 mg tablet 5 mg PO DAILY 05/17/20 06/14/25 06/13/25 History multivitamin 1 tab PO DAILY 05/17/20 06/14/25 06/13/25 History potassium gluconate 595 mg (99 mg) 595 mg PO DAILY 04/17/22 06/14/25 06/13/25 History tablet cholecalciferol (vitamin D3) 250 250 mcg PO DAILY 01/15/23 06/14/25 06/13/25 History mcg (10,000 unit) capsule magnesium chloride 64 mg 64 mg PO DAILY 01/15/23 06/14/25 06/13/25 History (magnesium chloride) tablet cetirizine 10 mg tablet 10 mg PO DAILY 04/06/14/25 06/13/25 History Allergies Allergy/AdvReac Type Severity Reaction Status Date / Time No Known Allergies Allergy Verified 03/02/25 11:31 PFSH Acute PFSH: Medical History (Updated 06/14/25 @ 14:35 by Veto Allen MD) Mixed hyperlipidemia CAD (coronary artery disease) with stent placed 2001 Hypertension Lumbar disc disease Surgical History History of back surgery S/P knee replacement Family History Mother Stroke Father Diabetes Denies family history of CAD (coronary artery disease) Clotting disorder Dementia Hyperlipidemia Chronic kidney disease (CKD) Suicide Anesthesia complication Bleeding disorder Lung disease Cancer Hypertension Social History Smoking and tobacco/nicotine status: never used tobacco/nicotine Alcohol intake: former Substance/Drug Use: never Vitals/I&O/Wt Last Vital Signs Temp 97.7 F 06/14/25 10:17 Pulse 57 L 06/14/25 11:45 Resp 16 06/14/25 10:17 BP 126/75 06/14/25 11:45 Pulse Ox 97 06/14/25 11:45 O2 Del Method Room Air 06/14/25 11:45 06/13/25 06/14/25 06/14/25 22:59 06:59 14:59 Intake Total 1999 Balance 1999 Weight last 48 hrs Weight 99.79 kg Physical Exam Const: COMMON NORMALS: no acute distress, average body habitus and no limitations HENMT: COMMON NORMALS: normocephalic and atraumatic Eye: PUPIL: Yes Equal, round and reactive pupils present EOM: Yes EOM abnormal Resp: COMMON NORMALS: normal respiratory effort and No retractions Cardio: COMMON NORMALS: regular rate, regular rhythm, No gallops present (Cardio), No murmurs present (Cardio) and No rub (Cardio) GI: COMMON NORMALS: Soft to palpation, non-tender and no masses Extremity: COMMON NORMALS: normal to inspection, full ROM and no pedal edema Neuro: COMMON NORMALS: patient oriented x3 and CN's II-XII intact bilaterally Psych: COMMON NORMALS: mental status grossly normal Skin: COMMON NORMALS: no rashes or lesions noted and no wounds Data 06/14/25 10:20 06/14/25 10:20 A&P Assessment and plan 1. Vertigo: Plan: 80 year old male presenting with vertigo Vertigo - started this AM, worsened by any head movement - description most consistent with BPPV - CT head negative - CTA head/neck with < 50% stetnosis in ICA bilaterally - consult physical therapy for Vaughn maneuvers PPx: lovenox Diet: HH Disposition - cont. home meds - possibly able to D/C in the AM if symptoms improved PDMP PDMP Reviewed: Not Reviewed Attestations Medical Necessity Statement*: Admitted to Observation for vertigo, anticipate possible D/C in AM Time Spent in Patient Care: 16 - 35 minutes Coding Level of Care Code Acute Code for Chg Nakiad Diagnoses Vertigo R42
[2025-06-14 15:20] VITALS: PULSE 63; O2SAT 95
[2025-06-14 16:47] VITALS: BMI 27.5
[2025-06-14 17:24] VITALS: BP 121/76; PULSE 97; O2SAT 97
[2025-06-14 17:25] VITALS: BP 139/81; PULSE 72; RESP 916; TEMP 36.6; O2SAT 96
[2025-06-14 20:00] VITALS: BP 120/70; PULSE 75; RESP 16; TEMP 36.6; O2SAT 96
[2025-06-15] VITALS: BP 127/69; PULSE 70; RESP 17; TEMP 36.4; O2SAT 94
[2025-06-15 03:31] LABS: Hematocrit 42.9 % (37-53); Hemoglobin 14.90 g/dL (11.27-16.99); Mean Corpuscular HGB Conc 34.7 g/dL (30-55); Mean Corpuscular Hemoglobin 31.4 pg (27-33); Mean Corpuscular Volume 90.5 fl (82-101); Nucleated Red Blood Cells % 0 %; Platelet Count 171 10^3/cmm (157-399); Red Blood Count 4.74 10^6/uL (3.85-5.65); White Blood Count 7.57 10^3/uL (3.29-11.43)
[2025-06-15 03:49] VITALS: BP 139/85; PULSE 67; RESP 17; TEMP 36.6; O2SAT 96
[2025-06-15 03:58] LABS: Anion Gap 13.0 (5-19); Blood Urea Nitrogen 10 mg/dL (8-23); Calcium 8.5 mg/dL (8.5-10.5); Carbon Dioxide 23 mmol/L (22-29); Chloride 106 mmol/L (98-107); Creatinine Clr Calc Pharmacy 85.3021; Glucose 101 mg/dL (65-115); Osmolality Calculated 285 mOsm/kg (285-295); Potassium 4.0 mmol/L (3.5-5.1); Sodium 138 mmol/L (136-145)
[2025-06-15 07:55] VITALS: BP 129/70; PULSE 66; RESP 17; TEMP 36.6; O2SAT 95
--- NOTE | 2025-06-15 09:35 | PC.CHAP ---
Pastoral Care Encounter/Spiritual Assessment Type of Contact [] Declined assistant community director visit [] Patient/Family/Request visit [] Outpatient visit [] Follow-up visit [] Physician referral [] Code/Alert [x] Routine visit [] Staff referral [] Actively dying [] Patient sleeping [] Family support [] [] Out of room [] Palliative care [] [] Receiving care in room [] Pre-surgical visit [] Trauma [] Long length of stay [] ICU visit [] Other: Relational/Emotional Strength [x] Patient feels connected with others/family/visitors/staff [] Distress [] Loneliness/isolation [] Abandonment Spirituality of Patient [x] Person of Brigid [] Attends Adventist of their Brigid [x] Believes in Prayer [] Reads Bible or Denominational materials [] There are Spiritual issues to be addressed Business Process Manager Interventions [x] Prayer [x] Active listening [] Non-anxious presence [x] Spiritual/emotional support [] Crisis/trauma care [] Spiritual counseling [] Bereavement support [] Provided bereavement packet [] Provided Bible/devotional materials [] Provided toy/stuffed animal, coloring book to patient or family member [] Provided Communion [] Anointing/[place] [] Salvation [x] Completed spiritual assessment [] Other: Impact on Illness or Injury [] Angry [] Fearful [] Anxious [] Often cries [] Exhaustion [] Unable to work [] Unable to attend oriental orthodox [] Unable to walk/stand [] Unable to read [] Unable to drive [] Unable to eat/drink [] Unable to sleep [] Unable to be with family [] Patient intubated [] Other: Summary Time spent with patient 5 min
--- NOTE | 2025-06-15 10:16 | PM.DCS ---
Discharge Providers Date of Admission: 06/14/25 16:34 Date of Discharge: June 15, 2025 Attending Provider at Admission: Veto Allen MD Attending Provider at Discharge: Veto Allen MD Primary Care Provider: Martine Alas MD Diagnoses at Discharge Discharge Diagnosis 1. Vertigo: Reason for Visit Reason for Visit: dizzy/nausea Brief History: 80 year old male presenting with vertigo Hospital Course Hospital Course Benign Positional Paroxysmal Vertigo - started AM of admission, worsened by any head movement - description most consistent with BPPV - CT head negative - CTA head/neck with < 50% stetnosis in ICA bilaterally - consult physical therapy for Vaughn maneuvers - he did some Vaughn maneuvers in the evening with nursing with reproduction of symptoms - feeling better this AM, Vaughn attempt again this AM with PT - outpatient PT for ongoing treatment and training in performing home Vaughn to help prevent future admissions. PPx: lovenox Diet: HH Disposition - cont. home meds - Discharge planning for today with outpatient PT. Physical Exam Const: COMMON NORMALS: no acute distress, average body habitus, patient oriented x3 and no limitations HENMT: COMMON NORMALS: normocephalic and atraumatic HEAD & SCALP: normocephalic and atraumatic Eye: COMMON NORMALS: Equal, round and reactive pupils present PUPIL: Yes Equal, round and reactive pupils present EOM: Yes EOM abnormal Resp: COMMON NORMALS: normal respiratory effort and No retractions Cardio: COMMON NORMALS: regular rate, regular rhythm, No gallops present (Cardio), No murmurs present (Cardio) and No rub (Cardio) RATE: regular rate RHYTHM: regular rhythm GI: COMMON NORMALS: Soft to palpation, non-tender and no masses PALPATION: Yes Soft to palpation Extremity: COMMON NORMALS: normal to inspection, full ROM and no pedal edema Neuro: COMMON NORMALS: patient oriented x3 and CN's II-XII intact bilaterally Psych: COMMON NORMALS: mental status grossly normal Skin: COMMON NORMALS: no rashes or lesions noted and no wounds GENERAL SKIN EXAM: no rashes or lesions noted Discharge Data Studies Completed and Pending Completed Studies During Hospitalization Category Date Time Status CT head wo con* [id number] Stat Cat Scan 06/14/25 10:32 Completed CTA head neck [CT angio headneck* [id number]] Stat Cat Scan 06/14/25 11:53 Completed Radiology Impressions Head CT 06/14/25 10:32 IMPRESSION: 1. No evidence of intracranial hemorrhage or mass effect. 2. Moderate small vessel changes with moderate parenchymal volume loss. 3. Vascular calcification. 4. Mastoid air cells are well aerated. 5. No acute intracranial findings. Head/Neck CTA 06/14/25 11:53 IMPRESSION: 1. Less than 50% cervical ICA stenosis bilaterally. 2. RIGHT dominant vertebral artery. Smaller but patent LEFT vertebral artery partially obscured proximally by the injection. 3. Mild intracranial atheromatous disease. No evidence of proximal flow-limiting stenosis. Laboratory Results WBC 7.57 10^3/uL (3.29-11.43) 06/15/25 03:13 RBC 4.74 10^6/uL (3.85-5.65) 06/15/25 03:13 Hgb 14.90 g/dL (11.27-16.99) 06/15/25 03:13 Hct 42.9 % (37-53) 06/15/25 03:13 MCV 90.5 fl (82-101) 06/15/25 03:13 MCH 31.4 pg (27-33) 06/15/25 03:13 MCHC 34.7 g/dL (30-55) 06/15/25 03:13 RDW 12.8 % (12.1-15.1) 06/15/25 03:13 Plt Count 171 10^3/cmm (157-399) 06/15/25 03:13 MPV 10.6 fL (7.4-10.4) H 06/15/25 03:13 Neut % (Auto) 61.2 % 06/15/25 03:13 Lymph % (Auto) 27.5 % 06/15/25 03:13 [place] % (Auto) 7.7 % 06/15/25 03:13 Eos % (Auto) 3.0 % 06/15/25 03:13 Baso % (Auto) 0.3 % 06/15/25 03:13 Neut # (Auto) 4.64 10^3/uL (1.8-7.7) 06/15/25 03:13 Lymph # (Auto) 2.1 10^3/uL (0.8-4.8) 06/15/25 03:13 [place] # (Auto) 0.6 10^3/uL (0.2-0.9) 06/15/25 03:13 Eos # (Auto) 0.2 10^3/uL (0.0-0.8) 06/15/25 03:13 Baso # (Auto) 0.0 10^3/uL (0.0-0.1) 06/15/25 03:13 Nucleated RBC % (auto) 0 % 06/15/25 03:13 Nucleated RBCs # 0.0 /100WBC 06/15/25 03:13 Sodium 138 mmol/L (136-145) 06/15/25 03:13 Potassium 4.0 mmol/L (3.5-5.1) 06/15/25 03:13 Chloride 106 mmol/L (98-107) 06/15/25 03:13 Carbon Dioxide 23 mmol/L (22-29) 06/15/25 03:13 Anion Gap 13.0 (5-19) 06/15/25 03:13 BUN 10 mg/dL (8-23) 06/15/25 03:13 Creatinine 0.9 mg/dL (0.7-1.2) 06/15/25 03:13 GFR Calculation Not Reportable 06/15/25 03:13 Glucose 101 mg/dL (65-115) 06/15/25 03:13 Calculated Osmolality 285 mOsm/kg (285-295) 06/15/25 03:13 Calcium 8.5 mg/dL (8.5-10.5) 06/15/25 03:13 Total Bilirubin 1.0 mg/dL (0.15-1.2) 06/14/25 10:20 AST 30 U/L (0-40) 06/14/25 10:20 ALT 33 U/L (0-41) 06/14/25 10:20 Alkaline Phosphatase 72 U/L (40-130) 06/14/25 10:20 Total Protein 6.5 g/dL (6.6-8.7) L 06/14/25 10:20 Albumin 3.9 g/dL (3.5-5.2) 06/14/25 10:20 Globulin 2.6 g/dL (1.3-4.6) 06/14/25 10:20 Urine Color Yellow (Yellow) 06/14/25 12:56 Urine Appearance Clear (CLEAR) 06/14/25 12:56 Urine pH 8.5 (5-7) A 06/14/25 12:56 Ur Specific [place] 1.030 (1.005-1.030) 06/14/25 12:56 Urine Protein Negative (Negative) 06/14/25 12:56 Urine Glucose (UA) Negative (Normal) 06/14/25 12:56 Urine Ketones Negative (Negative) 06/14/25 12:56 Urine Blood Negative (Negative) 06/14/25 12:56 Urine Nitrate Negative (Negative) 06/14/25 12:56 Urine Bilirubin Negative (Negative) 06/14/25 12:56 Urine Urobilinogen 1.0 mg/dL (Negative) 06/14/25 12:56 Ur Leukocyte Esterase Negative (Negative) 06/14/25 12:56 Urine RBC 0-2 /hpf (0-2) 06/14/25 12:56 Urine WBC 0-5 /hpf (0-5) 06/14/25 12:56 Ur Squamous Epith Cells 0-5 /hpf (0-5) 06/14/25 12:56 Amorphous Sediment Not Reportable 06/14/25 12:56 Urine Bacteria None seen /hpf (NONE) 06/14/25 12:56 Hyaline Casts 0.81 /lpf 06/14/25 12:56 Vitals Last Vital Signs Temp 97.9 F 06/15/25 07:55 Pulse 66 06/15/25 07:55 Resp 17 06/15/25 07:55 BP 129/70 06/15/25 07:55 Pulse Ox 95 06/15/25 07:55 O2 Del Method Room Air 06/15/25 03:49 Discharge Plan Discharge Patient Disposition: Home Condition: Stable Prescriptions: Continued atorvastatin [Lipitor] 80 mg tablet 80 mg PO QPM lisinopril 10 mg tablet 5 mg PO DAILY aspirin [Adult Low Dose Aspirin] 81 mg tablet,delayed release (DR/EC) 81 mg PO DAILY multivitamin Tablet 1 tab PO DAILY potassium gluconate 595 mg (99 mg) tablet 595 mg PO DAILY cetirizine 10 mg tablet 10 mg PO DAILY cholecalciferol (vitamin D3) 250 mcg (10,000 unit) capsule 250 mcg PO DAILY magnesium chloride 64 mg magnesium tablet 64 mg PO DAILY Discharge Order = DC NOW: Discharge Order (Routine); Ordered 06/15/25 Ordered By: Veto Allen Referrals: Martine Alas MD [Primary Care Provider, [facility]] Jerry Pollack DO [Emergency Department, Emergency Medicine] Patient Instructions: Opioid Safety, Patient Portal & [place] Instructions, Benign Paroxysmal Positional Vertigo (DC), Benign Paroxysmal Positional Vertigo (ED), Benign Paroxysmal Positional Vertigo (GEN) Discharge Attestations Time Spent in Discharge Care*: greater than 30 min Quality Metrics Clinical Quality Measures [ No reported AMI, CVA or VTE this stay] Coding Level of Care Code Acute Code for Chg Fwd Diagnoses Vertigo R42
[2025-06-15 10:32] VITALS: BP 129/70; PULSE 66; RESP 17; TEMP 36.6; O2SAT 95
--- NOTE | 2025-06-15 10:34 | PC.NURSE ---
Discharge Note Patient discharged to home via private vehicle accompanied by . Discharge instructions reviewed with patient and/or risk control field representative. Mobile pharmacy medications and/or prescriptions provided. Belongings/home medications returned.
--- NOTE | 2025-06-15 11:54 | PC.NURSE ---
awaiting a well being check on the patient's .
== END 2025-06-15 12:36 | disposition home or self-care (01) ==
LOC: ER 12:19 → MEDSURG 16:35
PROVIDERS: Admitting Provider Internal Medicine; Emergency Provider Family Medicine; PCP Family Medicine; Visit Provider Internal Medicine
DX: R42 Dizziness and giddiness (principal); Z79.82 Long term (current) use of aspirin; E78.2 Mixed hyperlipidemia; I25.10 Atherosclerotic heart disease of native coronary artery without angina pectoris; Z95.5 Presence of coronary angioplasty implant and graft; I10 Essential (primary) hypertension
CPT/HCPCS: 36415; 70450; 70496; 70498; 80048; 80053; 81001; 85025; 96372; 96374; 96375; 97110; 97161; 99285; G0378; J1650; J2060; J2405; J7030; J9999

== ENCOUNTER 2025-07-24 08:12 | Outpatient (RCR) | payer OTHER, SELFPAY | END 2025-08-07 09:52 | disposition home or self-care (01) | LOC: SPT 08:12 | PROVIDERS: PCP Family Medicine; Visit Provider Nurse Practitioner | DX: H81.312 Aural vertigo, left ear (principal) | CPT/HCPCS: 95992; 97112; 97161 ==

== ENCOUNTER → 2025-09-18 10:05 | Outpatient (BNVA) | payer OTHER, SELFPAY | PROVIDERS: Family Provider Emergency Medicine Emergency Medical Services; PCP Family Medicine; Visit Provider Internal Medicine Cardiovascular Disease | DX: I25.10 Atherosclerotic heart disease of native coronary artery without angina pectoris (principal); I10 Essential (primary) hypertension; E78.2 Mixed hyperlipidemia; R42 Dizziness and giddiness; Z95.5 Presence of coronary angioplasty implant and graft | CPT/HCPCS: 99214 ==